=== PATIENT | female | born 1935 | race Caucasian/White ===

== ENCOUNTER 2021-05-05 17:41 | Inpatient (IN) | payer MEDICAID, OTHER, SELFPAY ==
--- NOTE | 2021-05-05 | ECG_ITS ---
Test Reason : CHEST PAIN Blood Pressure : / mmHG Vent. Rate : 076 BPM Atrial Rate : 076 BPM P-R Int : 000 ms QRS Dur : 074 ms QT Int : 348 ms P-R-T Axes : 000 066 087 degrees QTc Int : 391 ms Normal sinus rhythm Minimal voltage criteria for LVH, may be normal variant Nonspecific ST abnormality Abnormal ECG No previous ECGs available Referred By: Generic ED Physician Electronically Signed By:SONALI DILLON
--- NOTE | ~2021-05-05 | CT_ITS ---
PROCEDURE: CT GUIDED ASPIRATION, FINE NEEDLE, WITH IMAGE GUIDANCE CLINICAL INFORMATION: Cavitary left lower lobe lung mass. COMPARISON: Previous chest x-ray and chest CT April 2021 TECHNIQUE: Procedure and risks and benefits including bleeding, infection and pneumothorax were discussed with the patient through an recordings librarian, and informed consent was obtained. Patient was positioned in the left decubitus position. The left back was prepped and draped in the usual sterile fashion. The skin and soft tissues were anesthetized with 1% lidocaine plain. CT guidance and a coaxial system, access to the periphery of the cavitary left lower lobe mass was obtained. A 20-gauge core biopsy was attempted, however, specimen appeared inadequate. Two 22-gauge FNA specimens through the coaxial needle were obtained for cytology and microbiology studies. Subsequently, using a larger coaxial needle, access to the peripheral component of the cavitary left lower lobe lesion was obtained. Four 18-gauge core biopsies were obtained. Two were placed in formalin for pathology and 2 were submitted for microbiology studies. The patient received Versed 2 mg and fentanyl 50 mcg intravenously during the procedure. Conscious sedation was provided by a registered nurse under my direct supervision. Total sedation time was 28 minutes. Patient dose: 112 mGy-cm. This CT examination was performed using dose optimization techniques as appropriate, variously including the following: *Automated exposure control *Adjustment of mA and/or kV according to patient size (this includes techniques or standardized protocols for targeted exams where dose is matched to indication/reason for exam; i.e. extremities or head) *Use of iterative reconstruction technique DLP: 112 mGy-cm FINDINGS: There is a cavitary lesion in the left lower lobe extending to the chest wall that was targeted for biopsy and fine-needle aspiration. Postprocedure images demonstrate no pneumothorax. CT/CT guided aspiration IMPRESSION: CT-guided biopsy and fine-needle aspiration of the cavitary left lower lobe lesion.
--- NOTE | ~2021-05-05 | XR_ITS ---
EXAMINATION: PORTABLE CHEST 1 VIEW CLINICAL INFORMATION: post lung biopsy . COMPARISON: CT guided biopsy earlier today and the 05/05/2021 CT scan and chest x-ray. TECHNIQUE: Portable frontal view of the chest was obtained. FINDINGS: Posterior opacity in the left hemithorax is again seen similar to the 05/05/2021 examination. I do not appreciate any new focal infiltrate, edema, or significant pneumothorax. Cardiac and mediastinal silhouettes within normal limits for size. XR/XR chest 1V IMPRESSION: Previously demonstrated cavitary masslike opacity overlying the left midlung was recently biopsied today. I do not appreciate any pneumothorax or focal airspace disease otherwise.
--- NOTE | ~2021-05-05 | XR_ITS ---
EXAMINATION: XR CHEST CLINICAL INFORMATION: Chest pain COMPARISON: None TECHNIQUE: Frontal view of the chest was obtained. FINDINGS: There is a 7.4 x 9.1 cm mass projecting over the left mid chest. There appears to be central lucency suggesting there may be cavitation. Normal heart size. No pleural effusion or pneumothorax. Degenerative changes of the shoulders and spine. XR/XR chest 1V IMPRESSION: 7.4 x 9.1 cm mass in the left mid chest with central lucency which may be cavitation. This could be a cavitary malignancy or infection (abscess). Recommend contrast-enhanced chest CT for further evaluation. The findings and recommendations were discussed with Joseph HENSON by telephone at 05/05/2021 8:45 PM and it was ascertained that the content and urgency of the report was understood at the time of direct communication.
--- NOTE | ~2021-05-05 | CT_ITS ---
EXAMINATION: CT CHEST WITH CONTRAST CT ABDOMEN AND PELVIS WITH CONTRAST CLINICAL INFORMATION: Chest mass. Cough. Nausea, abdominal distention and discomfort. COMPARISON: Radiograph from today TECHNIQUE: Multidetector volumetric imaging was performed through the chest, abdomen and pelvis following the administration of 85 mL of Omnipaque 350 intravenous contrast. Sagittal and coronal reformatted images were obtained on the technologist's workstation. Axial MIP volume rendering provided. This CT examination was performed using dose optimization techniques as appropriate, variously including the following: *Automated exposure control *Adjustment of mA and/or kV according to patient size (this includes techniques or standardized protocols for targeted exams where dose is matched to indication/reason for exam; i.e. extremities or head) *Use of iterative reconstruction technique DLP: 720 mGy-cm. FINDINGS: CHEST: Lungs: The central airways are patent. There is a cavitating lesion involving a large section of the left lower lobe, including the superior segment. This is seen along the posterior pleura with extension into the adjacent chest wall. Associated rib erosion involving the seventh and eighth ribs. This mass overall measures 7.1 x 8.6 x 7 There is mild centrilobular emphysema. No solid pulmonary nodules are seen. Calcified granuloma at the left base. No pneumothorax or pleural effusion. Mediastinum: The heart is of normal size. No pericardial effusion. The central vasculature is unremarkable. Enlarged AP window lymph node measuring 1.2 cm on series 5 image 23. Heterogeneous thyroid gland with calcifications and small nodules. Chest Wall/Axilla: No lymphadenopathy. No chest wall mass. ABDOMEN/PELVIS: Liver, Gallbladder, Biliary Tree: The liver is normal in size, shape, and attenuation. No focal hepatic lesion or biliary ductal dilatation is present. Calcification in the right lobe of the liver. The gallbladder is unremarkable with no evidence of radiopaque gallstones, gallbladder wall thickening, or pericholecystic inflammatory changes. Pancreas: Unremarkable. Spleen: Normal size. 0.7 cm hypoattenuating lesion at the superior aspect of the spleen measuring higher than simple fluid. Adrenal Glands: 0.8 cm left adrenal gland nodule. The right adrenal gland is unremarkable. Kidneys and Ureters: The kidneys are normal in size, shape, and attenuation. No hydronephrosis, hydroureter or calculi seen. No perinephric stranding. Simple renal cysts bilaterally. No follow-up imaging recommended. Bladder: Unremarkable. Gastrointestinal Tract: The stomach and small bowel appear unremarkable. No dilated loops of bowel or evidence of obstruction. No diverticulosis. No colonic wall thickening or adjacent inflammatory changes. No free air or free fluid. The appendix is unremarkable. Abdominal Wall: No hernia is demonstrated. Lymphovascular Structures: Lymph nodes: Normal. Vascular: Normal caliber aorta with mild atherosclerotic calcification. Pelvic Viscera: The uterus and adnexa are unremarkable. OSSEOUS STRUCTURES: As mentioned above, there is erosion into the left posterior seventh and eighth ribs. Pathologic fracture is nondisplaced of the posterior left eighth rib. There are no remote osseous lesions. Degenerative changes noted in the spine. CT/CT abdomen pelvis w con IMPRESSION: Cavitating mass of the left lower lobe. This is highly suspicious for neoplasm given the extension into the adjacent soft tissues and associated erosion of the adjacent ribs. Pathologic fracture of the posterior left eighth rib at the site of erosion. Enlarged AP window lymph node, concerning for metastatic disease. Nonspecific 0.8 cm left adrenal gland nodule. This could be further evaluated with adrenal protocol CT.
--- NOTE | ~2021-05-05 | CT_ITS ---
PROCEDURE: CT GUIDED ASPIRATION, FINE NEEDLE, WITH IMAGE GUIDANCE CLINICAL INFORMATION: Cavitary left lower lobe lung mass. COMPARISON: Previous chest x-ray and chest CT April 2021 TECHNIQUE: Procedure and risks and benefits including bleeding, infection and pneumothorax were discussed with the patient through an manager community development, and informed consent was obtained. Patient was positioned in the left decubitus position. The left back was prepped and draped in the usual sterile fashion. The skin and soft tissues were anesthetized with 1% lidocaine plain. CT guidance and a coaxial system, access to the periphery of the cavitary left lower lobe mass was obtained. A 20-gauge core biopsy was attempted, however, specimen appeared inadequate. Two 22-gauge FNA specimens through the coaxial needle were obtained for cytology and microbiology studies. Subsequently, using a larger coaxial needle, access to the peripheral component of the cavitary left lower lobe lesion was obtained. Four 18-gauge core biopsies were obtained. Two were placed in formalin for pathology and 2 were submitted for microbiology studies. The patient received Versed 2 mg and fentanyl 50 mcg intravenously during the procedure. Conscious sedation was provided by a registered nurse under my direct supervision. Total sedation time was 28 minutes. Patient dose: 112 mGy-cm. This CT examination was performed using dose optimization techniques as appropriate, variously including the following: *Automated exposure control *Adjustment of mA and/or kV according to patient size (this includes techniques or standardized protocols for targeted exams where dose is matched to indication/reason for exam; i.e. extremities or head) *Use of iterative reconstruction technique DLP: 112 mGy-cm FINDINGS: There is a cavitary lesion in the left lower lobe extending to the chest wall that was targeted for biopsy and fine-needle aspiration. Postprocedure images demonstrate no pneumothorax. CT/CT guided FNA add lesion IMPRESSION: CT-guided biopsy and fine-needle aspiration of the cavitary left lower lobe lesion.
[2021-05-05 18:17] VITALS: BP 181/60; PULSE 81; RESP 17; O2SAT 96; BMI 24.7
--- NOTE | 2021-05-05 19:52 | ECG_ITS ---
Test Reason : CHEST PAIN Blood Pressure : / mmHG Vent. Rate : 076 BPM Atrial Rate : 076 BPM P-R Int : 114 ms QRS Dur : 074 ms QT Int : 356 ms P-R-T Axes : 090 064 082 degrees QTc Int : 400 ms Normal sinus rhythm Minimal voltage criteria for LVH, may be normal variant Nonspecific ST abnormality Abnormal ECG When compared with ECG of 05-MAY-2021 18:55, No significant change was found Referred By: Generic ED Physician Electronically Signed By:SONALI DILLON
[2021-05-05 21:21] LABS: MANUAL DIFF FLAG NO
[2021-05-05 21:23] LABS: Basophils Absolute Auto 0.1 X10*3/uL (0.0-0.2); Basophils Percent Auto 0.3 % (0-2); Eosinophils Absolute Auto 0.1 X10*3/uL (0.0-0.4); Eosinophils Percent Auto 0.6 % (0-4); Hematocrit 30.5 % (37-47); Hemoglobin 10.2 g/dl (12.0-16.0); Imm Gran Abs Auto 0.07 X10*3/uL (0.00-0.03); Imm Gran Pct Auto 0.5 % (0.0-0.4); Lymphocytes Absolute Auto 3.4 X10*3/uL (1.2-4.9); Lymphocytes Percent Auto 22.8 % (20-40); Mean Corpuscular HGB Conc 33.4 g/dl (31.0-35.0); Mean Corpuscular Hemoglobin 28.5 pg (27.0-33.0); Mean Corpuscular Volume 85.2 fL (80-98); Monocytes Percent Auto 6.5 % (2-11); Neutrophils Absolute Auto 10.4 X10*3/uL (2.0-8.3); Neutrophils Percent Auto 69.3 % (45-73); Platelet Count 566 X10*3/uL (160-400); Red Blood Count 3.58 X10*6/uL (4.20-5.50); Red Cell Distribution Width 13.8 % (11.0-16.0)
[2021-05-05 21:28] LABS: INTERNATIONAL NORM RATIO 1.1 (0.9-1.1)
--- NOTE | 2021-05-05 21:30 | PC.NURSE ---
family reports pt is from [facility]. pt has been experiencing chest discomfort for months, increased yesterday, pt denies dyspnea. pt reports chest discomfort radiates down left arm.
[2021-05-05 21:31] LABS: Partial Thromboplastin Time 33.1 SEC (24.1-38.0)
[2021-05-05 21:41] LABS: Anion Gap 15 (12-20); Blood Urea Nitrogen 11 mg/dL (9-16); Calcium 10.5 mg/dL (8.4-10.2); Carbon Dioxide 27 mmol/L (22-29); Chloride 94 mmol/L (96-108); Creatinine Clr Calc Pharmacy 46.6; Estimated Glomerular Filt Rate > 60; Glucose Random 191 mg/dL (60-115); Potassium 4.2 mmol/L (3.3-5.1); Sodium 132 mmol/L (135-145)
[2021-05-05 21:45] LABS: Troponin-I High Sensitivity 5.8 ng/L (<3.5-17.0)
--- NOTE | 2021-05-05 22:44 | ED.CHESTPAIN ---
HPI - Chest Pain General Chief Complaint: Chest Pain Stated Complaint: l arm back and ear pain Time Seen by Provider: 05/05/21 22:40 Source: patient and family Mode of arrival: ambulatory History of Present Illness HPI narrative: 85F with hx of DM, HTN, who has been having abdominal distension and nausea with intermittent vomiting for over 2 weeks. Her family states that she was brought over from [facility] approximately 2 weeks ago and was suffering from these symptoms at that time. Patient denies any fever or chills but states she has had a cough as well as urinary pain/burning. She states she has not had a bowel movement in 4 days and has had decreased ability to pass flatus. She complaints of abdominal discomfort and distention. Family states that patient has history of abdominal surgery with removal of a mass not associated with her uterus. They states that this occurred 18 years ago. Related Data Home Medications Medication Instructions Recorded Confirmed tramadol 37.5 mg-acetaminophen 325 1 tab PO BID PRN 05/05/21 05/05/21 mg tablet Allergies Allergy/AdvReac Type Severity Reaction Status Date / Time No Known Allergies Allergy Verified 05/05/21 18:17 Review of Systems Review of Systems: Pertinent positives and negatives as stated in HPI 10 point review of systems otherwise negative. PMFSH Past Medical History Source: nursing notes reviewed Medical History Diabetes Social History Social History Advance Directives: No Advance Directives Information Provided: Yes Physical Exam Vital Signs: Vital Signs: Last Vital Signs Pulse 77 05/05/21 23:48 Resp 23 H 05/05/21 23:48 BP 165/58 H 05/05/21 23:48 Pulse Ox 96 05/05/21 18:17 Body Mass Index 24.7 VITAL SIGNS: Reviewed. GENERAL: Well developed, well nourished, in no acute distress. HEAD: Normocephalic/atraumatic EYES: PERRLA, EOMI EARS: Ext canals without abnormality, TMs non-bulging and non-erythematous NOSE: Nares patent bilateral OROPHARYNX: no oral lesions noted, posterior pharynx clear NECK: Supple, no adenopathy LUNGS: Decreased breath sounds on the left without wheeze/rhonchi/rales. SpO2<96> CARDIOVASCULAR: Regular rate and rhythm without noted murmurs, no JVD or lower extremity edema. ABDOMEN: Soft, mild tenderness diffusely without rebound, distension, with surgical scarring consistent with surgical history. MUSCULOSKELETAL: No tenderness, deformities, or effusions noted on gross inspection. EXTREMITIES: No cyanosis, clubbing or edema. SKIN: Inspection of the skin reveals no rashes, ulcerations, jaundice, pallor, or petechiae. NEUROLOGIC: Alert and oriented x 4. Strength and sensation to light touch were grossly intact x 4 Course Course Course Narrative: 85-year-old female with history and clinical presentation concerning for possible obstruction or intra-abdominal infection but unknown as patient recently arrived from [facility]. On review of all investigations patient has a large mass within left lower lobe with features suspicious for neoplasm. There is no evidence of SBO and patient's lab work suggestive of possible underlying infection (TIME: 0115) verses inflammatory response and patient was empirically treated with antibiotics and obtained a lactic acid and blood cultures. I discussed this case with inpatient hospitalist who accepts admission. MDM - Chest Pain Lab Data Result diagrams: 05/05/21 21:10 05/05/21 21:10 Labs: Lab Results 05/05/21 05/05/21 05/05/21 Range/Units 21:10 21:10 21:10 WBC 15.0 H (4.8-10.8) X10*3/uL RBC 3.58 L (4.20-5.50) X10*6/uL Hgb 10.2 L (12.0-16.0) g/dl Hct 30.5 L (37-47) % MCV 85.2 (80-98) fL MCH 28.5 (27.0-33.0) pg MCHC 33.4 (31.0-35.0) g/dl RDW 13.8 (11.0-16.0) % Plt Count 566 H (160-400) X10*3/uL MPV 9.0 L (9.4-12.3) fL Immature Gran % (Auto) 0.5 H (0.0-0.4) % Neut % (Auto) 69.3 (45-73) % Lymph % (Auto) 22.8 (20-40) % [place] % (Auto) 6.5 (2-11) % Eos % (Auto) 0.6 (0-4) % Baso % (Auto) 0.3 (0-2) % Lymph # (Auto) 3.4 (1.2-4.9) X10*3/uL [place] # (Auto) 1.0 (0.1-1.2) X10*3/uL Eos # (Auto) 0.1 (0.0-0.4) X10*3/uL Baso # (Auto) 0.1 (0.0-0.2) X10*3/uL Abs Immat Gran (auto) 0.07 H (0.00-0.03) X10*3/uL Absolute Neuts (auto) 10.4 H (2.0-8.3) X10*3/uL Absolute Nucleated RBC 0.000 (0.0-0.012) X10*3/uL Nucleated RBC % (auto) 0.0 (0.0-0.2) /100WBC PT (9.9-13.0) SEC INR (0.9-1.1) APTT (24.1-38.0) SEC Sodium 132 L (135-145) mmol/L Potassium 4.2 (3.3-5.1) mmol/L Chloride 94 L (96-108) mmol/L Carbon Dioxide 27 (22-29) mmol/L Anion Gap 15 (12-20) BUN 11 (9-16) mg/dL Creatinine 0.76 (0.5-1.4) mg/dL Estim Creat Clear Calc 46.6 Estimated GFR > 60 Random Glucose 191 H (60-115) mg/dL Calcium 10.5 H (8.4-10.2) mg/dL Troponin I High Sens 5.8 (<3.5-17.0) ng/L COVID-19 ([facility]) (Negative) COVID-19 Clin Com 05/05/21 05/05/21 Range/Units 21:11 23:30 WBC (4.8-10.8) X10*3/uL RBC (4.20-5.50) X10*6/uL Hgb (12.0-16.0) g/dl Hct (37-47) % MCV (80-98) fL MCH (27.0-33.0) pg MCHC (31.0-35.0) g/dl RDW (11.0-16.0) % Plt Count (160-400) X10*3/uL MPV (9.4-12.3) fL Immature Gran % (Auto) (0.0-0.4) % Neut % (Auto) (45-73) % Lymph % (Auto) (20-40) % [place] % (Auto) (2-11) % Eos % (Auto) (0-4) % Baso % (Auto) (0-2) % Lymph # (Auto) (1.2-4.9) X10*3/uL [place] # (Auto) (0.1-1.2) X10*3/uL Eos # (Auto) (0.0-0.4) X10*3/uL Baso # (Auto) (0.0-0.2) X10*3/uL Abs Immat Gran (auto) (0.00-0.03) X10*3/uL Absolute Neuts (auto) (2.0-8.3) X10*3/uL Absolute Nucleated RBC (0.0-0.012) X10*3/uL Nucleated RBC % (auto) (0.0-0.2) /100WBC PT 13.0 (9.9-13.0) SEC INR 1.1 (0.9-1.1) APTT 33.1 (24.1-38.0) SEC Sodium (135-145) mmol/L Potassium (3.3-5.1) mmol/L Chloride (96-108) mmol/L Carbon Dioxide (22-29) mmol/L Anion Gap (12-20) BUN (9-16) mg/dL Creatinine (0.5-1.4) mg/dL Estim Creat Clear Calc Estimated GFR Random Glucose (60-115) mg/dL Calcium (8.4-10.2) mg/dL Troponin I High Sens (<3.5-17.0) ng/L COVID-19 ([facility]) Negative (Negative) COVID-19 Clin Com See Note ECG Data ECG #1: Attestation: I personally reviewed and interpreted this ECG as follows: Prior ECG tracings: not available for review Interpretation: Normal sinus rhythm, HR -76, no STEMI, NJ/QRS/QTC are within normal limits. Discharge Plan Discharge Clinical Impression: Atypical chest pain, Intractable vomiting with nausea Patient Disposition: Admitted As Inpatient Prescriptions: No Action tramadol-acetaminophen 37.5-325 mg Tablet 1 tab PO BID PRN (Reason: Pain) RF: 0
[2021-05-05] MEDS: iohexoL 350 MG/ML 100 ML INFUS..BTL 85 ML IV (23:34)
[2021-05-05 23:48] VITALS: BP 165/58; PULSE 77; RESP 23
[2021-05-05 23:53] LABS: COVID-19 Test Negative (Negative)
[2021-05-06] VITALS (7 sets, daily range): BP systolic 134–167; BP diastolic 54–68; PULSE 65–82; RESP 16–20; TEMP 36–37.1; O2SAT 96–98
[2021-05-06] MEDS: 0.9 % Sodium Chloride 1,000 ML 999 ML IV (02:05)
[2021-05-06] MEDS: cefEPime HCl 1 GM in 0.9 % Sodium Chloride 50 ML IV (02:05)
[2021-05-06 02:14] LABS: Lactic Acid 1.2 mmol/L (0.5-2.0)
--- NOTE | 2021-05-06 02:39 | P.HPHOSP_ITS ---
History of Present Illness Date of Service: 05/06/21 Chief Complaint: Abdominal pain 85-year-old female with a past medical history of diabetes, chronic abdominal pain, history of abdominal surgery recently came from [facility] to .. presented to the hospital today with a chief complaint of abdominal pain. Patient reports that she has chronic abdominal pain but for the past couple days she has been having increased abdominal pain/chest discomfort; denies any falls. Complains of nausea and vomiting happened today. Denies any palpitations, lightheadedness or dizziness. Denies any diarrhea; complains of constipation. Mention she has decreased appetite; Denies any night sweats. Review of all other systems is negative except mentioned above ER course: Per ER team patient had CT abdomen pelvis done which showed no evidence of intra-abdominal obstruction; on this CT chest noted to have left lung cavitary lesion concern for malignancy. Admitted for further management. EKG nonischemic. Troponin negative. [facility] Medical History Diabetes Pertinent family history: Mother had abdominal issues Social History Advance Directives: No Advance Directives Information Provided: Yes Meds Allergies Allergy/AdvReac Type Severity Reaction Status Date / Time No Known Allergies Allergy Verified 05/05/21 18:17 Active Medications: Current Medications Acetaminophen (Acetaminophen 325 Mg Tablet) 650 mg PO Q6H PRN PRN Reason: Pain, Mild (Pain Scale 1-3) Dextrose (Dextrose 50 % 25 Gm/50 Ml Vial) 25 gm IVPUSH Q15M PRN; Protocol PRN Reason: per Hypoglycemia Standing Ord. Enoxaparin Sodium (Enoxaparin Sodium 40 Mg/0.4 Ml Syringe) 40 mg SUBCUT Q24H TOYIN Glucose (Glucose Gel 15 Gm Gel..Gram.) 15 gm PO Q15M PRN; Protocol PRN Reason: per Hypoglycemia Standing Ord. Insulin Human Lispro (Insulin Lispro 100 Unit/Ml 3 Ml Vial) 0 unit SUBCUT QIDACHS TOYIN; Protocol Melatonin (Melatonin 3 Mg Tablet) 6 mg PO BEDTIME PRN PRN Reason: Insomnia Senna (Sennosides 8.6 Mg Tablet) 17.2 mg PO BEDTIME PRN PRN Reason: Constipation Sodium Chloride (0.9 % Sodium Chloride Flush 3 Ml Syringe) 3 ml IVFLUSH QSHIFT [facility] Home Medications Medication Instructions Recorded Confirmed Last Taken Type tramadol 37.5 mg-acetaminophen 325 1 tab PO BID PRN 05/05/21 05/05/21 Unknown History mg tablet Physical Exam Vital Signs and Narrative: Vital Signs: Last Vital Signs Pulse 71 05/06/21 02:01 Resp 16 05/06/21 02:01 BP 155/55 H 05/06/21 02:01 Pulse Ox 96 05/05/21 18:17 Body Mass Index 24.7 Gen: Appears be in no acute distress HEENT: NCAT, Moist mucosa. Pulmonary: Vesicular breath sounds, fair air entry CVS: Normal S1-S2 Abdomen: BS+, Soft, Nontender Extremities: Warm well perfused Neuro: Alert and awake. Results Labs CBC and Chem 7: 05/05/21 21:10 05/05/21 21:10 Labs: Laboratory Results - last 24 hr 05/05/21 05/05/21 05/05/21 21:10 21:10 21:10 MCV 85.2 MCH 28.5 MCHC 33.4 RDW 13.8 Plt Count 566 H MPV 9.0 L Immature Gran % (Auto) 0.5 H Neut % (Auto) 69.3 Lymph % (Auto) 22.8 [place] % (Auto) 6.5 Eos % (Auto) 0.6 Baso % (Auto) 0.3 Lymph # (Auto) 3.4 [place] # (Auto) 1.0 Eos # (Auto) 0.1 Baso # (Auto) 0.1 Abs Immat Gran (auto) 0.07 H Absolute Neuts (auto) 10.4 H Absolute Nucleated RBC 0.000 Nucleated RBC % (auto) 0.0 PT INR APTT Anion Gap 15 Estim Creat Clear Calc 46.6 Estimated GFR > 60 Random Glucose 191 H Lactic Acid Calcium 10.5 H Troponin I High Sens 5.8 COVID-19 ([facility]) COVID-19 Clin Com 05/05/21 05/05/21 05/06/21 21:11 23:30 01:55 MCV MCH MCHC RDW Plt Count MPV Immature Gran % (Auto) Neut % (Auto) Lymph % (Auto) [place] % (Auto) Eos % (Auto) Baso % (Auto) Lymph # (Auto) [place] # (Auto) Eos # (Auto) Baso # (Auto) Abs Immat Gran (auto) Absolute Neuts (auto) Absolute Nucleated RBC Nucleated RBC % (auto) PT 13.0 INR 1.1 APTT 33.1 Anion Gap Estim Creat Clear Calc Estimated GFR Random Glucose Lactic Acid 1.2 Calcium Troponin I High Sens COVID-19 ([facility]) Negative COVID-19 Clin Com See Note Imaging Radiologist's Impressions: Impressions Chest X-Ray 05/05/21 19:52 IMPRESSION: 7.4 x 9.1 cm mass in the left mid chest with central lucency which may be cavitation. This could be a cavitary malignancy or infection (abscess). Recommend contrast-enhanced chest CT for further evaluation. The findings and recommendations were discussed with Joseph HENSON by telephone at 05/05/2021 8:45 PM and it was ascertained that the content and urgency of the report was understood at the time of direct communication. Abdomen/Pelvis CT 05/05/21 22:40 IMPRESSION: Cavitating mass of the left lower lobe. This is highly suspicious for neoplasm given the extension into the adjacent soft tissues and associated erosion of the adjacent ribs. Pathologic fracture of the posterior left eighth rib at the site of erosion. Enlarged AP window lymph node, concerning for metastatic disease. Nonspecific 0.8 cm left adrenal gland nodule. This could be further evaluated with adrenal protocol CT. Chest CT 05/05/21 22:40 IMPRESSION: Cavitating mass of the left lower lobe. This is highly suspicious for neoplasm given the extension into the adjacent soft tissues and associated erosion of the adjacent ribs. Pathologic fracture of the posterior left eighth rib at the site of erosion. Enlarged AP window lymph node, concerning for metastatic disease. Nonspecific 0.8 cm left adrenal gland nodule. This could be further evaluated with adrenal protocol CT. Assessment and Plan (1) Atypical chest pain: Status: Acute (2) Lung mass: Status: Acute 85-year-old female with a past medical history of diabetes, chronic abdominal pain, history of abdominal surgery recently came from [facility] to .. presented to the hospital today with a chief complaint of abdominal pain. Nausea/vomiting/abdominal discomfort: CT abdomen showed no acute findings. Supportive care. Chest discomfort: Likely secondary to posterior rib fracture. Pain control. Supportive care. troponin: 5.8; repeat pending DDimer Left lung cavitary lesion: Concern for malignancy. Will consult pulmonology and Oncology for further recommendations. Diabetes: Insulin sliding scale. Patient generic medicine at home which has metformin. DVT prophylaxis: Lovenox Code status: Full code Quality Stroke Does the patient have a stroke diagnosis?: No VTE Prior VTE?: No VTE Risk Level:: Medical - moderate - high VTE Device Contraindication: Treatment Not Indicated VTE Drug Contraindication: N/A - Med Ordered
[2021-05-06 03:08] LABS: MANUAL DIFF FLAG NO
[2021-05-06 03:26] LABS: Basophils Absolute Auto 0.1 X10*3/uL (0.0-0.2); Basophils Percent Auto 0.4 % (0-2); Eosinophils Absolute Auto 0.1 X10*3/uL (0.0-0.4); Eosinophils Percent Auto 0.5 % (0-4); Hematocrit 27.6 % (37-47); Hemoglobin 9.1 g/dl (12.0-16.0); Imm Gran Abs Auto 0.06 X10*3/uL (0.00-0.03); Imm Gran Pct Auto 0.4 % (0.0-0.4); Lymphocytes Absolute Auto 3.7 X10*3/uL (1.2-4.9); Lymphocytes Percent Auto 26.7 % (20-40); Mean Corpuscular Hemoglobin 28.4 pg (27.0-33.0); Mean Corpuscular Volume 86.3 fL (80-98); Mean Platelet Volume 9.1 fL (9.4-12.3); Monocytes Absolute Auto 1.1 X10*3/uL (0.1-1.2); Monocytes Percent Auto 7.7 % (2-11); Neutrophils Absolute Auto 8.8 X10*3/uL (2.0-8.3); Neutrophils Percent Auto 64.3 % (45-73); Platelet Count 518 X10*3/uL (160-400); Red Cell Distribution Width 13.8 % (11.0-16.0); White Blood Count 13.7 X10*3/uL (4.8-10.8)
[2021-05-06 03:35] LABS: D Dimer 577 NG/ML
[2021-05-06 03:42] LABS: Anion Gap 13 (12-20); Blood Urea Nitrogen 10 mg/dL (9-16); Calcium 9.8 mg/dL (8.4-10.2); Carbon Dioxide 26 mmol/L (22-29); Chloride 98 mmol/L (96-108); Estimated Glomerular Filt Rate > 60; Glucose Random 150 mg/dL (60-115); Potassium 3.7 mmol/L (3.3-5.1); Sodium 133 mmol/L (135-145)
[2021-05-06 03:43] LABS: Troponin-I High Sensitivity 6.1 ng/L (<3.5-17.0)
[2021-05-06 07:24] LABS: Glucose, Whole Blood 128 mg/dL (60-115)
[2021-05-06] MEDS: 0.9 % Sodium Chloride Flush 3 ML SYRINGE IVFLUSH ×3 (08:09→21:00)
--- NOTE | 2021-05-06 08:10 | PC.NURSE ---
pt alert, pt's mentation at baseline per daughter at bedside. She denies dizziness, nausea, diarrhea, sob, chest pain, no active vomiting noted. She reports LLQ pain. Will follow-up with hospitalist regarding pt's pain. POC 128-no insulin coverage needed per [facility] protocol. Pt up to restroom with daughter. Pt resting quietly, no apparent distress noted. Pt awaiting bed assignment. will continue to monitor.
--- NOTE | 2021-05-06 08:38 | PM.HEMONCCN ---
Subjective - Subjective Chief complaint: Consult for: Lung mass. Patient: new to practice Consult date: 05/06/21 Requesting Physician: Alejandra. Primary Care Provider: None Physician Medical Summary: DIAGNOSIS: Lung mass. HPI - Consult Narrative Reason for consult: Consult for: Lung mass. Narrative: Sahra Gonzalez is a pleasant 85 year old lady, presented to the hospital, with a chief complaint of abdominal pain. Patient reports that she has chronic abdominal pain, but for the past couple days, she has been having increased abdominal pain/chest discomfort; Complains of nausea and vomiting happened today. Denies any diarrhea; complains of constipation. Mention she has decreased appetite; Denies any palpitations, No lightheadedness or dizziness. Denies any fever chills nor night sweats. CT abdomen pelvis: Showed no evidence of intra-abdominal obstruction; However, on this CT chest she was noted to have left lung cavitary lesion concern for malignancy. EKG nonischemic. Troponin negative. Past medical history of: 1. Diabetes, 2. Chronic abdominal pain, 3. History of abdominal surgery 4. Recently came from [facility] to [facility]. Review of Systems - Constitutional Reports system reviewed and no additional complaints, except as documented, Reports fatigue, Reports lack of energy, Reports poor appetite, Reports weakness, Reports weight loss, Denies fever(s), Denies night sweats - Eyes Reports system reviewed and no additional complaints, except as documented - ENT Reports system reviewed and no additional complaints, except as documented - Cardiovascular Reports system reviewed and no additional complaints, except as documented - Respiratory Reports no additional respiratory complaints - Gastrointestinal Reports system reviewed and no additional complaints, except as documented, Reports abdominal pain, Reports nausea, Reports vomiting, Denies diarrhea - Genitourinary Reports no additional female genitourinary complaints - Musculoskeletal Reports system reviewed and no additional complaints, except as documented - Integumentary/Breasts Skin/Breast: Reports no additional skin complaints - Neurologic Reports system reviewed and no additional complaints, except as documented - Psychiatric Reports system reviewed and no additional complaints, except as documented - Endocrine Reports no additional endocrine complaints - Hematologic/Lymphatic Reports system reviewed and no additional complaints, except as documented - Allergic/Immunologic Reports system reviewed and no additional complaints, except as documented Oncology Screenings - ECOG Performance Status ECOG Performance Status: 2 [facility] Medical History: Medical History (Last Reviewed 05/05/21 @ 23:19 by Racquel Lima MD) Diabetes Functional capacity: uses cane/walker Patient : No Social History: Social History (Last Reviewed 05/05/21 @ 23:19 by Racquel Lima MD) Living Situation History: Household Members: Spouse Household Members: Family Housing: House Alcohol History Details: Alcohol intake frequency: does not drink Tobacco History: Patient Tobacco Use Status: Never used Tobacco Occupation Assessmet: service: No Home Medications and Allergies Current Medications: Current Medications Acetaminophen (Acetaminophen 325 Mg Tablet) 650 mg PO Q6H PRN PRN Reason: Pain, Mild (Pain Scale 1-3) Dextrose (Dextrose 50 % 25 Gm/50 Ml Vial) 25 gm IVPUSH Q15M PRN; Protocol PRN Reason: per Hypoglycemia Standing Ord. Enoxaparin Sodium (Enoxaparin Sodium 40 Mg/0.4 Ml Syringe) 40 mg SUBCUT Q24H TOYIN Glucose (Glucose Gel 15 Gm Gel..Gram.) 15 gm PO Q15M PRN; Protocol PRN Reason: per Hypoglycemia Standing Ord. Ampicillin Sodium/Sulbactam (Sodium 3 gm/ Sodium Chloride) 100 mls @ 200 mls/hr IV Q8H TOYIN Insulin Human Lispro (Insulin Lispro 100 Unit/Ml 3 Ml Vial) 0 unit SUBCUT QIDACHS [facility]; Protocol Last Admin: 05/06/21 07:56 Dose: Not Given Documented by: Melatonin (Melatonin 3 Mg Tablet) 6 mg PO BEDTIME PRN PRN Reason: Insomnia Senna (Sennosides 8.6 Mg Tablet) 17.2 mg PO BEDTIME PRN PRN Reason: Constipation Sodium Chloride (0.9 % Sodium Chloride Flush 3 Ml Syringe) 3 ml IVFLUSH QSHIFT [facility] Last Admin: 05/06/21 08:09 Dose: 3 ml Documented by: Home Medications Medication Instructions Recorded Confirmed Type tramadol 37.5 mg-acetaminophen 325 1 tab PO BID PRN 05/05/21 05/05/21 History mg tablet Allergies Allergy/AdvReac Type Severity Reaction Status Date / Time No Known Allergies Allergy Verified 05/05/21 18:17 Physical Exam Vital signs: Vital Signs Temp 98.4 F 05/06/21 08:07 Pulse 70 05/06/21 08:07 Resp 20 05/06/21 08:07 BP 167/62 H 05/06/21 08:07 Pulse Ox 97 05/06/21 08:07 Intake & Output 05/05/21 05/06/21 05/06/21 18:59 06:59 18:59 Intake Total 1050 / 1050 Balance 1050 / 1050 Intake: Intake, IV Amount 1050 / 1050 0.9 % Sodium Chloride 1,000 ml 1000 / 1000 @ 999 mls/hr IV .Q1H1M STA Rx#: [id number] cefEPime HCl 1 gm In 0.9 % 50 / 50 Sodium Chloride 50 ml @ 100 mls /hr IV ONCE ONE Rx#:[id number] Other: Weight 59.9 kg Weight 59.9 kg - Routine HEENT Exam Head: Present: normal inspection Eye: Present: normal appearance ENT: Present: mucous membranes moist - Routine Neck Exam Present: supple. Absent: thyromegaly - Routine Respiratory Exam Present: decreased breath sounds - Routine Cardiovascular Exam Cardiovascular: Present: RRR, S1, S2 - Routine Abdominal Exam Present: hypoactive bowel sounds, tenderness Hem/Onc Consult Result - Labs CBC & Chem 7: 05/10/21 05:59 05/10/21 05:59 Labs: Short CBC 05/05/21 05/06/21 Range/Units 21:10 03:03 WBC 15.0 H 13.7 H (4.8-10.8) X10*3/uL Hgb 10.2 L 9.1 L (12.0-16.0) g/dl Hct 30.5 L 27.6 L (37-47) % Plt Count 566 H 518 H (160-400) X10*3/uL BMP 05/05/21 05/06/21 21:10 03:03 Sodium 132 L 133 L Potassium 4.2 3.7 Chloride 94 L 98 Carbon Dioxide 27 26 BUN 11 10 Creatinine 0.76 0.68 Calcium 10.5 H 9.8 D Assessment and Plan Patient Active problem list reviewed?: Yes (1) Cavitary lesion of lung Status: Acute Assessment and plan: This is a pleasant 85-year-old lady who presented with acute on chronic abdominal pain. CT abdomen/ pelvis: Showed no evidence of intra-abdominal obstruction; However, on this CT chest she was noted to have left lung cavitary lesion concern for malignancy. A dedicated CT scan of the chest was done which revealed: Cavitating mass of the left lower lobe. This is highly suspicious for neoplasm given the extension into the adjacent soft tissues and associated erosion of the adjacent ribs. Pathologic fracture of the posterior left eighth rib at the site of erosion. Enlarged AP window lymph node, concerning for metastatic disease. Nonspecific 0.8 cm left adrenal gland nodule. This could be further evaluated with adrenal protocol CT. PLAN: Reviewed images with IR. It is an 8 cm mass, rather huge. Will need to obtain tissue. Choices include: 1. CT-guided biopsy: Rib versus lung mass. 2. Bronchoscopic biopsy. 3. Sputum for cytology. Will start with the sputum for cytology. IR suggested to do the biopsy of the rib. They do have an opening for today at 12:30. Patient has been made NPO. Coags are normal. Will make further treatment plans based upon the exact pathology. Will check bone scan, given the extension into the ribs. Thank you for the consult, Will follow along with you. CC: Mir. - Time Spent With Patient Time Spent with Patient (in minutes): 35
[2021-05-06] MEDS: Ampicillin Sodium/Sulbactam Na 3 GM in 0.9 % Sodium Chloride 100 ML IV ×3 (08:48→20:53)
--- NOTE | 2021-05-06 09:30 | PC.NURSE ---
Dr. Rider called and requested pt to be NPO because she is scheduled to have a biopsy at 1230 this afternoon. Procedure explained to pt with her daughter at bedside. wardrobe consultant used. Pt on TB precaution. Pt moved to ED 1 with negative pressure. Everything explained using wardrobe consultant and pt's daughter at bedside.
--- NOTE | 2021-05-06 10:27 | MHC.IC ---
Discussed with Dr Ramírez this a.m. Pt needs airborne precautions due to r/o active TB. He has ordered AFB x3.
[2021-05-06 10:59] LABS: Glucose, Whole Blood 125 mg/dL (60-115)
--- NOTE | 2021-05-06 13:11 | HO.PM.IMPN ---
Subjective Subjective Date of Service: 05/06/21 Interval History: Seen and examined this morning with the use of a tray drier Admitted for new lung mass Patient reports 2 year history of left-sided pain. She reports sweats and hemoptysis She has some shortness of breath Review of Systems Review of Systems: Yes all other systems are reviewed and are negative Constitutional Constitutional: Denies chills and Denies fever(s) Cardiovascular Cardiovascular: Denies chest pain Respiratory Respiratory: Reports hemoptysis Physical Exam Vital Signs: Vital Signs: Last Vital Signs Temp 98.2 F 05/06/21 10:51 Pulse 70 05/06/21 10:51 Resp 17 05/06/21 10:51 BP 157/57 H 05/06/21 10:51 Pulse Ox 97 05/06/21 10:51 Body Mass Index 24.7 Const: General: comfortable, no acute distress, alert and awake Nutritional Appearance: thin HENMT: Head: Yes normocephalic and Yes atraumatic Eyes: Sclerae: sclerae normal Pupils: Equal, round and reactive pupils present Chest: Other: tender to palpation left side ribs Resp: Effort & Inspection: normal respiratory effort and no respiratory distress Auscultation: diminished lung sounds Cardio: Rate: regular rate Rhythm: regular rhythm GI: Palpation (GI): Soft to palpation and nontender Neuro: Cranial nerves: Yes CN's II-XII intact bilaterally, Yes Equal, round and reactive pupils present and Yes Bilaterally intact EOM present Extrem: General: Yes normal to inspection Objective Data Active Medications Acetaminophen (Acetaminophen 325 Mg Tablet) 650 mg PO Q6H PRN PRN Reason: Pain, Mild (Pain Scale 1-3) Dextrose (Dextrose 50 % 25 Gm/50 Ml Vial) 25 gm IVPUSH Q15M PRN; Protocol PRN Reason: per Hypoglycemia Standing Ord. Enoxaparin Sodium (Enoxaparin Sodium 40 Mg/0.4 Ml Syringe) 40 mg SUBCUT Q24H [facility] Last Admin: 05/06/21 09:05 Dose: Not Given Documented by: AMAYA Non-Admin Reason: pt has biopsy at 1230 Glucose (Glucose Gel 15 Gm Gel..Gram.) 15 gm PO Q15M PRN; Protocol PRN Reason: per Hypoglycemia Standing Ord. Ampicillin Sodium/Sulbactam (Sodium 3 gm/ Sodium Chloride) 100 mls @ 200 mls/hr IV Q6H [facility] Last Infusion: 05/06/21 10:12 Dose: 0 mls/hr Documented by: AMAYA Insulin Human Lispro (Insulin Lispro 100 Unit/Ml 3 Ml Vial) 0 unit SUBCUT QIDACHS [facility]; Protocol Last Admin: 05/06/21 10:53 Dose: Not Given Documented by: BHAVANA Non-Admin Reason: NPO Melatonin (Melatonin 3 Mg Tablet) 6 mg PO BEDTIME PRN PRN Reason: Insomnia Senna (Sennosides 8.6 Mg Tablet) 17.2 mg PO BEDTIME PRN PRN Reason: Constipation Sodium Chloride (0.9 % Sodium Chloride Flush 3 Ml Syringe) 3 ml IVFLUSH QSHIFT [facility] Last Admin: 05/06/21 08:09 Dose: 3 ml Documented by: AMAYA Labs CBC & Chem 7: 05/06/21 03:03 05/06/21 03:03 Labs: Laboratory Results - last 24 hr 05/05/21 05/05/21 05/05/21 21:10 21:10 21:10 MCV 85.2 MCH 28.5 MCHC 33.4 RDW 13.8 Plt Count 566 H MPV 9.0 L Immature Gran % (Auto) 0.5 H Neut % (Auto) 69.3 Lymph % (Auto) 22.8 [place] % (Auto) 6.5 Eos % (Auto) 0.6 Baso % (Auto) 0.3 Lymph # (Auto) 3.4 [place] # (Auto) 1.0 Eos # (Auto) 0.1 Baso # (Auto) 0.1 Abs Immat Gran (auto) 0.07 H Absolute Neuts (auto) 10.4 H Absolute Nucleated RBC 0.000 Nucleated RBC % (auto) 0.0 PT INR APTT D-Dimer Anion Gap 15 Estim Creat Clear Calc 46.6 Estimated GFR > 60 POC Glucose Random Glucose 191 H Lactic Acid Calcium 10.5 H Troponin I High Sens 5.8 COVID-19 ([facility]) COVID-19 Clin Com 05/05/21 05/05/21 05/06/21 21:11 23:30 01:55 MCV MCH MCHC RDW Plt Count MPV Immature Gran % (Auto) Neut % (Auto) Lymph % (Auto) [place] % (Auto) Eos % (Auto) Baso % (Auto) Lymph # (Auto) [place] # (Auto) Eos # (Auto) Baso # (Auto) Abs Immat Gran (auto) Absolute Neuts (auto) Absolute Nucleated RBC Nucleated RBC % (auto) PT 13.0 INR 1.1 APTT 33.1 D-Dimer Anion Gap Estim Creat Clear Calc Estimated GFR POC Glucose Random Glucose Lactic Acid 1.2 Calcium Troponin I High Sens COVID-19 ([facility]) Negative COVID-19 Clin Com See Note 05/06/21 05/06/21 05/06/21 03:03 03:03 03:03 MCV 86.3 MCH 28.4 MCHC 33.0 RDW 13.8 Plt Count 518 H MPV 9.1 L Immature Gran % (Auto) 0.4 Neut % (Auto) 64.3 Lymph % (Auto) 26.7 [place] % (Auto) 7.7 Eos % (Auto) 0.5 Baso % (Auto) 0.4 Lymph # (Auto) 3.7 [place] # (Auto) 1.1 Eos # (Auto) 0.1 Baso # (Auto) 0.1 Abs Immat Gran (auto) 0.06 H Absolute Neuts (auto) 8.8 H Absolute Nucleated RBC 0.000 Nucleated RBC % (auto) 0.0 PT INR APTT D-Dimer Anion Gap 13 Estim Creat Clear Calc 52.0 Estimated GFR > 60 POC Glucose Random Glucose 150 H Lactic Acid Calcium 9.8 D Troponin I High Sens 6.1 COVID-19 ([facility]) COVID-19 Clin Com 05/06/21 05/06/21 05/06/21 03:03 07:21 10:56 MCV MCH MCHC RDW Plt Count MPV Immature Gran % (Auto) Neut % (Auto) Lymph % (Auto) [place] % (Auto) Eos % (Auto) Baso % (Auto) Lymph # (Auto) [place] # (Auto) Eos # (Auto) Baso # (Auto) Abs Immat Gran (auto) Absolute Neuts (auto) Absolute Nucleated RBC Nucleated RBC % (auto) PT INR APTT D-Dimer 577 Anion Gap Estim Creat Clear Calc Estimated GFR POC Glucose 128 H 125 H Random Glucose Lactic Acid Calcium Troponin I High Sens COVID-19 ([facility]) COVID-19 Clin Com Assessment and Plan (1) Cavitary lesion of lung: Status: Acute Assessment and Plan: This is a 85-year-old female with a past medical history of diabetes, chronic abdominal pain, history of abdominal surgery recently came from [facility] to [facility]. presented to the hospital today with a chief complaint of abdominal pain found to have large cavitary lung lesion with invasion into ribs. Left lung cavitary lesion: Malignancy vs TB vs abscess Seen by pulmonary, need to r/o TB If TB is negative, will need tissue diagnosis for malignancy Tspot, afb sputum cultures ordered Oncology following continue empiric unasyn Rib fracture r/t to above lung lesion pain control Nausea/vomiting/abdominal discomfort: No n/v at this time CT abdomen showed no acute findings. Supportive care. Diabetes: SSI, POCs Code status - full code DVT prophylaxis: Lovenox Code status: Full code Quality Stroke Does the patient have a stroke diagnosis?: No VTE Prior VTE?: No VTE Risk Level:: Medical - moderate - high VTE Device Contraindication: Treatment Not Indicated VTE Drug Contraindication: N/A - Med Ordered
--- NOTE | 2021-05-06 14:32 | PM.CNPUL ---
History of Present Illness History of Present Illness Consult date: 05/06/21 Requesting physician: Primitivo Roberts Chief complaint: Lung mass Narrative: 85-year-old lady, nonsmoker, 2 weeks from [facility], admitted on 05/06/2021 with chronic abdominal pain and chest discomfort. On ER evaluation patient was noted to have 8 cm cavitary left sided lung lesion with erosion to adjusting tissue. Patient denies cough or sputum production. She denies prior history of lung disease. REPLACED BY [facility] Past Medical History Medical History Diabetes Functional capacity: uses cane/walker Social History Social History Patient Tobacco Use Status: Never used Tobacco Use of substances other than those prescribed or required for medical reasons: No Advance Directives: No Advance Directives Information Provided: Yes Patient : No Meds Allergies Allergy/AdvReac Type Severity Reaction Status Date / Time No Known Allergies Allergy Verified 05/05/21 18:17 Active Medications: Current Medications Acetaminophen (Acetaminophen 325 Mg Tablet) 650 mg PO Q6H PRN PRN Reason: Pain, Mild (Pain Scale 1-3) Dextrose (Dextrose 50 % 25 Gm/50 Ml Vial) 25 gm IVPUSH Q15M PRN; Protocol PRN Reason: per Hypoglycemia Standing Ord. Enoxaparin Sodium (Enoxaparin Sodium 40 Mg/0.4 Ml Syringe) 40 mg SUBCUT Q24H [facility] Last Admin: 05/06/21 09:05 Dose: Not Given Documented by: Glucose (Glucose Gel 15 Gm Gel..Gram.) 15 gm PO Q15M PRN; Protocol PRN Reason: per Hypoglycemia Standing Ord. Ampicillin Sodium/Sulbactam (Sodium 3 gm/ Sodium Chloride) 100 mls @ 200 mls/hr IV Q6H [facility] Last Infusion: 05/06/21 10:12 Dose: Infused Documented by: Insulin Human Lispro (Insulin Lispro 100 Unit/Ml 3 Ml Vial) 0 unit SUBCUT QIDACHS [facility]; Protocol Last Admin: 05/06/21 10:53 Dose: Not Given Documented by: Lidocaine (Lidocaine 4 % Patch Adh..Patch) 1 patch TRANSDERMA DAILY [facility]; Protocol Melatonin (Melatonin 3 Mg Tablet) 6 mg PO BEDTIME PRN PRN Reason: Insomnia Oxycodone HCl (Oxycodone Hcl Immed Release 5 Mg Tablet) 5 mg PO Q6H PRN PRN Reason: Pain, Moderate (Pain Scale 4-6 Senna (Sennosides 8.6 Mg Tablet) 17.2 mg PO BEDTIME PRN PRN Reason: Constipation Sodium Chloride (0.9 % Sodium Chloride Flush 3 Ml Syringe) 3 ml IVFLUSH QSHIFT [facility] Last Admin: 05/06/21 08:09 Dose: 3 ml Documented by: Sodium Chloride (Sodium Chloride 3 % Inhalation 15 Ml Vial.Neb) 15 ml INHALE DAILY PRN PRN Reason: sputum sample Home Medications Medication Instructions Recorded Confirmed Last Taken Type tramadol 37.5 mg-acetaminophen 325 1 tab PO BID PRN 05/05/21 05/05/21 Unknown History mg tablet Physical Exam Vital Signs: Vital Signs: Last Vital Signs Temp 98.2 F 05/06/21 10:51 Pulse 70 05/06/21 10:51 Resp 17 05/06/21 10:51 BP 157/57 H 05/06/21 10:51 Pulse Ox 97 05/06/21 10:51 Body Mass Index 24.7 Const: General: no acute distress, alert and awake Eyes: Sclerae: sclerae normal EOM: EOMs intact bilaterally Neck: Neck: Yes no lymphadenopathy, Yes trachea midline and Yes supple Resp: Effort & Inspection: normal respiratory effort and no respiratory distress Auscultation: clear to auscultation bilaterally Cardio: Rate: regular rate Rhythm: regular rhythm Heart sounds: no gallops, no murmurs and no rubs GI: Palpation (GI): Soft to palpation and Other GI palpation findings present ( Nontender) Auscultation: normal bowel sounds Extrem: General: Yes no pedal edema, No clubbing and No cyanosis Results Laboratory Findings CBC and BMP: 05/06/21 03:03 05/06/21 03:03 ABG, PT/INR, D-dimer: PT/INR, D-dimer PT 13.0 SEC (9.9-13.0) 05/05/21 21:11 INR 1.1 (0.9-1.1) 05/05/21 21:11 D-Dimer 577 NG/ML 05/06/21 03:03 Abnormal lab findings: Abnormal Labs 05/05/21 05/05/21 05/06/21 21:10 21:10 03:03 WBC 15.0 H 13.7 H RBC 3.58 L 3.20 L Hgb 10.2 L 9.1 L Hct 30.5 L 27.6 L Plt Count 566 H 518 H MPV 9.0 L 9.1 L Immature Gran % (Auto) 0.5 H Abs Immat Gran (auto) 0.07 H 0.06 H Absolute Neuts (auto) 10.4 H 8.8 H Sodium 132 L Chloride 94 L POC Glucose Random Glucose 191 H Calcium 10.5 H 05/06/21 05/06/21 05/06/21 03:03 07:21 10:56 WBC RBC Hgb Hct Plt Count MPV Immature Gran % (Auto) Abs Immat Gran (auto) Absolute Neuts (auto) Sodium 133 L Chloride POC Glucose 128 H 125 H Random Glucose 150 H Calcium Assessment and Plan (1) Cavitary lesion of lung: Status: Acute Impression: 85-year-old lady recently from [facility] admitted with chronic abdominal pain and incidentally found 8 cm cavitary left lung lesion. Malignant versus TB versus pulmonary abscess. Recommendation: Rule out infectious TB with 3 sputum smears. Start on empiric Unasyn. Biopsy after TB rule out. Procedures Date of Service Date of Service: 05/06/21
[2021-05-06] MEDS: oxyCODONE HCl Immed Release 5 MG TABLET PO (16:06)
[2021-05-06 16:39] LABS: Glucose, Whole Blood 208 mg/dL (60-115)
[2021-05-06] MEDS: Insulin Lispro 100 UNIT/ML 3 ML VIAL SUBCUT ×2 (16:53→21:14)
[2021-05-06 21:10] LABS: Glucose, Whole Blood 159 mg/dL (60-115)
[2021-05-07] MEDS: Ampicillin Sodium/Sulbactam Na 3 GM in 0.9 % Sodium Chloride 100 ML IV ×4 (03:13→21:32)
[2021-05-07 03:27] VITALS: BP 140/68; PULSE 68; RESP 18; TEMP 36.8; O2SAT 97
[2021-05-07 07:09] LABS: Hematocrit 28.5 % (37-47); Hemoglobin 9.1 g/dl (12.0-16.0); Mean Corpuscular HGB Conc 31.9 g/dl (31.0-35.0); Mean Corpuscular Hemoglobin 27.7 pg (27.0-33.0); Mean Corpuscular Volume 86.6 fL (80-98); Mean Platelet Volume 9.5 fL (9.4-12.3); Platelet Count 528 X10*3/uL (160-400); Red Blood Count 3.29 X10*6/uL (4.20-5.50); Red Cell Distribution Width 13.9 % (11.0-16.0); White Blood Count 11.3 X10*3/uL (4.8-10.8)
[2021-05-07 07:22] LABS: Anion Gap 12 (12-20); Blood Urea Nitrogen 9 mg/dL (9-16); Carbon Dioxide 30 mmol/L (22-29); Chloride 100 mmol/L (96-108); Creatinine Clr Calc Pharmacy 53.6; Estimated Glomerular Filt Rate > 60; Glucose Random 120 mg/dL (60-115); Potassium 3.5 mmol/L (3.3-5.1); Sodium 138 mmol/L (135-145)
[2021-05-07 08:00] VITALS: BP 156/67; PULSE 72; RESP 20; TEMP 36.4; O2SAT 92
[2021-05-07 08:07] LABS: Glucose, Whole Blood 128 mg/dL (60-115)
[2021-05-07] MEDS: Enoxaparin Sodium 40 MG/0.4 ML SYRINGE SUBCUT (08:52)
[2021-05-07] MEDS: 0.9 % Sodium Chloride Flush 3 ML SYRINGE IVFLUSH ×2 (08:58→21:32)
[2021-05-07 11:24] VITALS: BP 165/78; PULSE 73; RESP 18; TEMP 36.5; O2SAT 99
--- NOTE | 2021-05-07 11:55 | MHC.CM.PN ---
met with pt who is independent cm ashly is not indicated pt reprts having her own ride home
[2021-05-07 12:11] LABS: Glucose, Whole Blood 211 mg/dL (60-115)
--- NOTE | 2021-05-07 12:12 | PM.IMPN ---
Progress Note: A&P (1) Lung mass: Status: Acute (2) Rib fracture: Status: Acute Assessment and Plan: This is a 85-year-old female with a past medical history of diabetes, chronic abdominal pain, history of abdominal surgery recently came from [facility] to .. presented to the hospital today with a chief complaint of abdominal pain found to have large cavitary lung lesion with invasion into ribs. Left lung cavitary lesion. Malignancy vs TB vs abscess Seen by pulmonary, If TB is negative, will need tissue diagnosis for malignancy Tspot, afb sputum cultures ordered, first sputum was not good, will attempt second sample Oncology following continue empiric unasyn Rib fracture r/t to above lung lesion pain control Nausea/vomiting/abdominal discomfort CT abdomen showed no acute findings.? Supportive care. Diabetes SSI, ada diet Code status - full code DVT prophylaxis:? Lovenox Attending Dr. Ashley Subjective Subjective Date of Service: 05/08/21 Review of Systems Follow up lung mass vs TB Physical Exam Vital Signs: Vital Signs: Last Vital Signs Temp 97.7 F 05/07/21 11:24 Pulse 73 05/07/21 11:24 Resp 18 05/07/21 11:24 BP 165/78 H 05/07/21 11:24 Pulse Ox 99 05/07/21 11:24 Body Mass Index 24.7 Appearing in no acute distress lung sounds are clear to auscultation heart regular rate rhythm, clear S1, S2 positive bowel sounds, abdomen is soft, nontender neuro patient is alert x3, no focal deficits Objective Data Current Medications Acetaminophen (Acetaminophen 325 Mg Tablet) 650 mg PO Q6H PRN PRN Reason: Pain, Mild (Pain Scale 1-3) Dextrose (Dextrose 50 % 25 Gm/50 Ml Vial) 25 gm IVPUSH Q15M PRN; Protocol PRN Reason: per Hypoglycemia Standing Ord. Docusate Sodium (Docusate Sodium 100 Mg Capsule) 100 mg PO BEDTIME ON LICENSE OF [facility] Last Admin: 05/06/21 21:00 Dose: Not Given Documented by: Enoxaparin Sodium (Enoxaparin Sodium 40 Mg/0.4 Ml Syringe) 40 mg SUBCUT Q24H ON LICENSE OF [facility] Last Admin: 05/07/21 08:52 Dose: 40 mg Documented by: Glucose (Glucose Gel 15 Gm Gel..Gram.) 15 gm PO Q15M PRN; Protocol PRN Reason: per Hypoglycemia Standing Ord. Ampicillin Sodium/Sulbactam (Sodium 3 gm/ Sodium Chloride) 100 mls @ 200 mls/hr IV Q6H ON LICENSE OF [facility] Last Admin: 05/07/21 08:54 Dose: 200 mls/hr Documented by: Insulin Human Lispro (Insulin Lispro 100 Unit/Ml 3 Ml Vial) 0 unit SUBCUT QIDACHS ON LICENSE OF [facility]; Protocol Last Admin: 05/07/21 08:52 Dose: Not Given Documented by: Lidocaine (Lidocaine 4 % Patch Adh..Patch) 1 patch TRANSDERMA DAILY ON LICENSE OF [facility]; Protocol Melatonin (Melatonin 3 Mg Tablet) 6 mg PO BEDTIME PRN PRN Reason: Insomnia Oxycodone HCl (Oxycodone Hcl Immed Release 5 Mg Tablet) 5 mg PO Q6H PRN PRN Reason: Pain, Moderate (Pain Scale 4-6 Last Admin: 05/06/21 16:06 Dose: 5 mg Documented by: Senna (Sennosides 8.6 Mg Tablet) 17.2 mg PO BEDTIME PRN PRN Reason: Constipation Sodium Chloride (0.9 % Sodium Chloride Flush 3 Ml Syringe) 3 ml IVFLUSH QSHIFT ON LICENSE OF [facility] Last Admin: 05/07/21 08:58 Dose: 3 ml Documented by: Sodium Chloride (Sodium Chloride 3 % Inhalation 15 Ml Vial.Neb) 15 ml INHALE DAILY PRN PRN Reason: sputum sample Labs CBC & Chem 7: 05/08/21 08:14 05/08/21 08:14 Labs: Laboratory Results - last 24 hr 05/06/21 05/06/21 05/07/21 16:17 21:03 06:19 MCV 86.6 MCH 27.7 MCHC 31.9 RDW 13.9 Plt Count 528 H MPV 9.5 Absolute Nucleated RBC 0.000 Nucleated RBC % (auto) 0.0 Anion Gap Estim Creat Clear Calc Estimated GFR POC Glucose 208 H 159 H Random Glucose Calcium 05/07/21 05/07/21 05/07/21 06:19 07:54 12:05 MCV MCH MCHC RDW Plt Count MPV Absolute Nucleated RBC Nucleated RBC % (auto) Anion Gap 12 Estim Creat Clear Calc 53.6 Estimated GFR > 60 POC Glucose 128 H 211 H Random Glucose 120 H Calcium 10.0 Microbiology Microbiology Results: Microbiology 05/06/21 18:22 Sputum - Expectorated Gram Stain - Final 05/06/21 18:22 Sputum - Expectorated Sputum Culture - Final 05/06/21 01:57 Blood - Venous Blood Culture - Preliminary No growth after 24 hours. 05/06/21 01:55 Blood - Venous Blood Culture - Preliminary No growth after 24 hours. Quality Stroke Does the patient have a stroke diagnosis?: No VTE Prior VTE?: No VTE Risk Level:: Medical - moderate - high VTE Device Contraindication: Treatment Not Indicated VTE Drug Contraindication: N/A - Med Ordered
--- NOTE | 2021-05-07 12:20 | ECG_ITS ---
Test Reason : HIGH BP Blood Pressure : / mmHG Vent. Rate : 085 BPM Atrial Rate : 079 BPM P-R Int : 000 ms QRS Dur : 076 ms QT Int : 342 ms P-R-T Axes : 000 048 066 degrees QTc Int : 406 ms Normal sinus rhythm with occasional Premature ventricular complexes Nonspecific ST and T wave abnormality Abnormal ECG When compared with ECG of 05-MAY-2021 18:55, No significant change was found Referred By: Bianca Hester Electronically Signed By:SONALI DILLON
[2021-05-07] MEDS: Insulin Lispro 100 UNIT/ML 3 ML VIAL SUBCUT ×2 (12:26→21:38)
--- NOTE | 2021-05-07 13:59 | MHC.CM.PN ---
pt on droplet precautions spoke with pt on phone and called [facility]by mc with whom she lives [phone],she explains that pt came here from [facility] 3 weeks ago she will staying with jesusita ,financial counsleor has met with family dc plAN at this time is home with colby servcies needed tbd by pts hospitila course
[2021-05-07] MEDS: Lidocaine 4 % Patch ADH..PATCH 1 PATCH TRANSDERMA (14:27)
[2021-05-07 14:55] VITALS: BP 165/69; PULSE 74; RESP 18; TEMP 36.2; O2SAT 98
[2021-05-07 16:04] LABS: Glucose, Whole Blood 96 mg/dL (60-115)
[2021-05-07 19:07] VITALS: BP 168/65; PULSE 80; RESP 20; TEMP 36.8; O2SAT 98
[2021-05-07 20:01] LABS: Glucose, Whole Blood 229 mg/dL (60-115)
[2021-05-07] MEDS: oxyCODONE HCl Immed Release 5 MG TABLET PO (21:35)
[2021-05-07 23:29] VITALS: BP 185/72; PULSE 67; RESP 17; TEMP 37.2; O2SAT 97
[2021-05-08] VITALS (8 sets, daily range): BP systolic 139–171; BP diastolic 58–74; PULSE 72–88; RESP 18–20; TEMP 36.2–37.4; O2SAT 95–99
[2021-05-08] MEDS: Ampicillin Sodium/Sulbactam Na 3 GM in 0.9 % Sodium Chloride 100 ML IV ×4 (03:00→22:19)
[2021-05-08] MEDS: oxyCODONE HCl Immed Release 5 MG TABLET PO (06:40)
[2021-05-08 08:21] LABS: Glucose, Whole Blood 141 mg/dL (60-115)
[2021-05-08 08:25] LABS: Hemoglobin 8.8 g/dl (12.0-16.0); Mean Corpuscular HGB Conc 32.6 g/dl (31.0-35.0); Mean Corpuscular Hemoglobin 27.9 pg (27.0-33.0); Mean Corpuscular Volume 85.7 fL (80-98); Mean Platelet Volume 8.5 fL (9.4-12.3); Platelet Count 471 X10*3/uL (160-400); Red Blood Count 3.15 X10*6/uL (4.20-5.50); Red Cell Distribution Width 13.8 % (11.0-16.0); White Blood Count 11.3 X10*3/uL (4.8-10.8)
[2021-05-08 08:39] LABS: Anion Gap 11 (12-20); Blood Urea Nitrogen 8 mg/dL (9-16); Carbon Dioxide 31 mmol/L (22-29); Chloride 98 mmol/L (96-108); Creatinine Clr Calc Pharmacy 49.1; Estimated Glomerular Filt Rate > 60; Glucose Random 142 mg/dL (60-115); Potassium 3.4 mmol/L (3.3-5.1); Sodium 137 mmol/L (135-145)
[2021-05-08] MEDS: 0.9 % Sodium Chloride Flush 3 ML SYRINGE IVFLUSH ×3 (10:08→22:24)
[2021-05-08] MEDS: Enoxaparin Sodium 40 MG/0.4 ML SYRINGE SUBCUT (10:08)
[2021-05-08] MEDS: Lidocaine 4 % Patch ADH..PATCH 1 PATCH TRANSDERMA (10:09)
--- NOTE | 2021-05-08 11:01 | PM.IMPN ---
Progress Note: A&P (1) Rib fracture: Status: Acute (2) Cavitary lesion of lung: Status: Acute (3) Lung mass: Status: Acute Assessment and Plan: This is a 85-year-old female with a past medical history of diabetes, chronic abdominal pain, history of abdominal surgery recently came from [facility] to [facility]. presented to the hospital today with a chief complaint of abdominal pain found to have large cavitary lung lesion with invasion into ribs. Left lung cavitary lesion. Malignancy vs TB vs abscess Seen by pulmonary, If TB is negative, will need tissue diagnosis for malignancy Tspot, afb sputum cultures ordered, first sputum was not good, will attempt second sample, patient having difficulty collecting a good sample Oncology following continue empiric unasyn Rib fracture r/t to above lung lesion pain control Nausea/vomiting/abdominal discomfort. nausea resolved CT abdomen showed no acute findings.? Supportive care. Diabetes SSI, ada diet Code status - full code DVT prophylaxis:? Lovenox Attending Dr. Ashley Subjective Subjective Date of Service: 05/08/21 Review of Systems Follow up lung mass feels good today still with left sided abd pain radiating to back Physical Exam Vital Signs: Vital Signs: Last Vital Signs Temp 98.5 F 05/08/21 08:00 Pulse 72 05/08/21 08:00 Resp 19 05/08/21 08:00 BP 165/71 H 05/08/21 08:00 Pulse Ox 95 05/08/21 08:00 Body Mass Index 24.7 Appearing in no acute distress lung sounds are clear to auscultation heart regular rate rhythm, clear S1, S2 positive bowel sounds, abdomen is soft, nontender neuro patient is alert x3, no focal deficits Objective Data Current Medications Acetaminophen (Acetaminophen 325 Mg Tablet) 650 mg PO Q6H PRN PRN Reason: Pain, Mild (Pain Scale 1-3) Dextrose (Dextrose 50 % 25 Gm/50 Ml Vial) 25 gm IVPUSH Q15M PRN; Protocol PRN Reason: per Hypoglycemia Standing Ord. Docusate Sodium (Docusate Sodium 100 Mg Capsule) 100 mg PO BEDTIME [facility] Last Admin: 05/07/21 21:31 Dose: Not Given Documented by: Enoxaparin Sodium (Enoxaparin Sodium 40 Mg/0.4 Ml Syringe) 40 mg SUBCUT Q24H [facility] Last Admin: 05/08/21 10:08 Dose: 40 mg Documented by: Glucose (Glucose Gel 15 Gm Gel..Gram.) 15 gm PO Q15M PRN; Protocol PRN Reason: per Hypoglycemia Standing Ord. Ampicillin Sodium/Sulbactam (Sodium 3 gm/ Sodium Chloride) 100 mls @ 200 mls/hr IV Q6H [facility] Last Admin: 05/08/21 10:09 Dose: 200 mls/hr Documented by: Insulin Human Lispro (Insulin Lispro 100 Unit/Ml 3 Ml Vial) 0 unit SUBCUT QIDACHS [facility]; Protocol Last Admin: 05/08/21 10:02 Dose: Not Given Documented by: Lidocaine (Lidocaine 4 % Patch Adh..Patch) 1 patch TRANSDERMA DAILY [facility]; Protocol Last Admin: 05/08/21 10:09 Dose: 1 patch Documented by: Melatonin (Melatonin 3 Mg Tablet) 6 mg PO BEDTIME PRN PRN Reason: Insomnia Oxycodone HCl (Oxycodone Hcl Immed Release 5 Mg Tablet) 5 mg PO Q6H PRN PRN Reason: Pain, Moderate (Pain Scale 4-6 Last Admin: 05/08/21 06:40 Dose: 5 mg Documented by: Senna (Sennosides 8.6 Mg Tablet) 17.2 mg PO BEDTIME PRN PRN Reason: Constipation Sodium Chloride (0.9 % Sodium Chloride Flush 3 Ml Syringe) [facility] Last Admin: 05/08/21 10:08 Dose: 3 ml Documented by: Sodium Chloride (Sodium Chloride 3 % Inhalation 15 Ml Vial.Neb) 15 ml INHALE DAILY PRN PRN Reason: sputum sample Labs CBC & Chem 7: 05/08/21 08:14 05/08/21 08:14 Labs: Laboratory Results - last 24 hr 05/07/21 05/07/21 05/07/21 12:05 15:59 19:55 MCV MCH MCHC RDW Plt Count MPV Absolute Nucleated RBC Nucleated RBC % (auto) Anion Gap Estim Creat Clear Calc Estimated GFR POC Glucose 211 H 96 229 H Random Glucose Calcium 05/08/21 05/08/21 05/08/21 08:10 08:14 08:14 MCV 85.7 MCH 27.9 MCHC 32.6 RDW 13.8 Plt Count 471 H MPV 8.5 L Absolute Nucleated RBC 0.000 Nucleated RBC % (auto) 0.0 Anion Gap 11 L Estim Creat Clear Calc 49.1 Estimated GFR > 60 POC Glucose 141 H Random Glucose 142 H Calcium 10.0 Microbiology Microbiology Results: Microbiology 05/06/21 01:57 Blood - Venous Blood Culture - Preliminary No growth after 48 hours. 05/06/21 01:55 Blood - Venous Blood Culture - Preliminary No growth after 48 hours. 05/06/21 18:27 Sputum - Expectorated Direct Acid Fast Bacilli Smear - Final 05/06/21 18:27 Sputum - Expectorated Acid Fast Bacilli Culture & Smear - Final 05/06/21 18:22 Sputum - Expectorated Gram Stain - Final 05/06/21 18:22 Sputum - Expectorated Sputum Culture - Final Quality Stroke Does the patient have a stroke diagnosis?: No VTE Prior VTE?: No VTE Risk Level:: Medical - moderate - high VTE Device Contraindication: Treatment Not Indicated VTE Drug Contraindication: N/A - Med Ordered
[2021-05-08 11:35] LABS: Glucose, Whole Blood 183 mg/dL (60-115)
[2021-05-08] MEDS: Sodium Chloride 3 % Inhalation 15 ML VIAL.NEB 4 ML INHALE ×2 (11:49→15:52)
--- NOTE | 2021-05-08 12:20 | PC.RT ---
Hypertonic saline treatment given on 05/14/21 at 11:49 for induced sputum. Pt. had strong, non-productive cough after treatment.
--- NOTE | 2021-05-08 12:21 | PM.CCN ---
Critical Care Event Note Summary Date of Service: 05/08/21 Code activated: No Narrative: If patient fails to produce adequate specimens for AFB smears with hypertonic induced sputum culture, that would be an adequate evidence of noninfectivity, even if she has underlying active tuberculosis. Then, would suggest discontinuation of respiratory isolation and proceeding with biopsy of the cavitary pulmonary lesion. Critical Care Time (minutes): 0
[2021-05-08] MEDS: Insulin Lispro 100 UNIT/ML 3 ML VIAL SUBCUT ×3 (13:07→22:23)
--- NOTE | 2021-05-08 15:54 | PC.RT ---
hypertonic saline treatment given for sputum induction. no sputum obtained
[2021-05-08 16:32] LABS: Glucose, Whole Blood 275 mg/dL (60-115)
[2021-05-08 20:00] LABS: Glucose, Whole Blood 154 mg/dL (60-115)
[2021-05-08] MEDS: Docusate Sodium 100 MG CAPSULE PO (22:19)
[2021-05-08] MEDS: Melatonin 3 MG TABLET 6 MG PO (22:23)
[2021-05-09] MEDS: Ampicillin Sodium/Sulbactam Na 3 GM in 0.9 % Sodium Chloride 100 ML IV ×4 (03:19→21:31)
[2021-05-09 03:33] VITALS: BP 143/64; PULSE 86; RESP 20; TEMP 35.8; O2SAT 96
[2021-05-09 07:23] VITALS: BP 147/65; PULSE 74; RESP 20; TEMP 37.2; O2SAT 97
[2021-05-09 07:42] LABS: Glucose, Whole Blood 139 mg/dL (60-115)
[2021-05-09] MEDS: Enoxaparin Sodium 40 MG/0.4 ML SYRINGE SUBCUT (09:25)
[2021-05-09] MEDS: 0.9 % Sodium Chloride Flush 3 ML SYRINGE IVFLUSH ×2 (09:27→21:31)
[2021-05-09] MEDS: Lidocaine 4 % Patch ADH..PATCH 1 PATCH TRANSDERMA (09:27)
--- NOTE | 2021-05-09 10:04 | PM.PNPUL ---
Subjective Subjective Date of Service: 05/09/21 Interval history: The patient was seen on exam. Having hard time expectorating. Still waiting for the T spot. Will plan for bronchoscopy tomorrow at 11:00 am tomorrow the vaccine. Objective Data Labs CBC & Chem 7: 05/08/21 08:14 05/08/21 08:14 Labs: Laboratory Results - last 24 hr 05/08/21 05/08/21 05/08/21 11:28 16:27 19:55 POC Glucose 183 H 275 H 154 H 05/09/21 07:26 POC Glucose 139 H Microbiology Microbiology Results: Microbiology 05/06/21 01:57 Blood - Venous Blood Culture - Preliminary No growth after 48 hours. 05/06/21 01:55 Blood - Venous Blood Culture - Preliminary No growth after 48 hours. 05/06/21 18:27 Sputum - Expectorated Direct Acid Fast Bacilli Smear - Final 05/06/21 18:27 Sputum - Expectorated Acid Fast Bacilli Culture & Smear - Final 05/06/21 18:22 Sputum - Expectorated Gram Stain - Final 05/06/21 18:22 Sputum - Expectorated Sputum Culture - Final Review of Systems Constitutional: Denies night sweats Cardiovascular: Denies chest pain Respiratory: Reports pain on inspiration and Reports pain with cough Gastrointestinal: Denies abdominal pain Denies Neuro-related abnormal movements Physical Exam Vital Signs: Vital Signs: Last Vital Signs Temp 98.9 F 05/09/21 07:23 Pulse 74 05/09/21 07:23 Resp 20 05/09/21 07:23 BP 147/65 H 05/09/21 07:23 Pulse Ox 97 05/09/21 07:23 Body Mass Index 24.7 Const: General: alert Neck: Neck: Yes normal visual inspection, Yes full ROM and Yes no lymphadenopathy Chest: Chest palpation & inspection: normal inspection of the chest Resp: Auscultation: diminished lung sounds Cardio: Rate: regular rate Rhythm: regular rhythm Heart sounds: S1 normal heart sound present and S2 normal heart sound present Skin: General skin exam: rashes and/or lesions noted Procedures Date of Service Date of Service: 05/09/21 Assessment and Plan Assessment and plan (1) Rib fracture: Status: Acute (2) Cavitary lesion of lung: Status: Acute (3) Lung mass: Status: Acute Assessment and Plan: Scheduled for bronchoscopy tomorrow 10/5 11am Time Spent With Patient Time: Total time spent is greater than 50% in coordination of care (as documented) at patient's floor/unit and/or counseling patient: Time with patient: 15 - 24 minutes Progress Note: Quality Stroke Does the patient have a stroke diagnosis?: No
--- NOTE | 2021-05-09 10:47 | PM.IMPN ---
Progress Note: A&P (1) Rib fracture: Status: Acute (2) Cavitary lesion of lung: Status: Acute Assessment and Plan: This is a 85-year-old female with a past medical history of diabetes, chronic abdominal pain, history of abdominal surgery recently came from [facility] to .. presented to the hospital today with a chief complaint of abdominal pain found to have large cavitary lung lesion with invasion into ribs. Left lung cavitary lesion. Malignancy vs TB vs abscess vs other bacterial/fungal species Seen by pulmonary, plan for bronch tomorrow Tspot, afb sputum cultures ordered, first sputum was not good, will attempt second sample, patient having difficulty collecting a good sample Oncology consult continue empiric unasyn Rib fracture r/t to above lung lesion pain control Nausea/vomiting/abdominal discomfort. nausea resolved CT abdomen showed no acute findings.? Supportive care. Diabetes SSI, ada diet Code status - full code DVT prophylaxis:? Lovenox Attending Dr. Forte Subjective Subjective Date of Service: 05/09/21 Review of Systems Follow up lung mass No sob some rib pain Physical Exam Vital Signs: Vital Signs: Last Vital Signs Temp 98.9 F 05/09/21 07:23 Pulse 74 05/09/21 07:23 Resp 20 05/09/21 07:23 BP 147/65 H 05/09/21 07:23 Pulse Ox 97 05/09/21 07:23 Body Mass Index 24.7 Appearing in no acute distress lung sounds are clear to auscultation heart regular rate rhythm, clear S1, S2 positive bowel sounds, abdomen is soft, nontender neuro patient is alert x3, no focal deficits Objective Data Current Medications Acetaminophen (Acetaminophen 325 Mg Tablet) 650 mg PO Q6H PRN PRN Reason: Pain, Mild (Pain Scale 1-3) Dextrose (Dextrose 50 % 25 Gm/50 Ml Vial) 25 gm IVPUSH Q15M PRN; Protocol PRN Reason: per Hypoglycemia Standing Ord. Docusate Sodium (Docusate Sodium 100 Mg Capsule) 100 mg PO BEDTIME [facility] Last Admin: 05/08/21 22:19 Dose: 100 mg Documented by: Enoxaparin Sodium (Enoxaparin Sodium 40 Mg/0.4 Ml Syringe) 40 mg SUBCUT Q24H [facility] Last Admin: 05/09/21 09:25 Dose: 40 mg Documented by: Glucose (Glucose Gel 15 Gm Gel..Gram.) 15 gm PO Q15M PRN; Protocol PRN Reason: per Hypoglycemia Standing Ord. Ampicillin Sodium/Sulbactam (Sodium 3 gm/ Sodium Chloride) 100 mls @ 200 mls/hr IV Q6H [facility] Last Infusion: 05/09/21 10:41 Dose: Infused Documented by: Insulin Human Lispro (Insulin Lispro 100 Unit/Ml 3 Ml Vial) 0 unit SUBCUT QIDACHS [facility]; Protocol Last Admin: 05/09/21 09:07 Dose: Not Given Documented by: Lidocaine (Lidocaine 4 % Patch Adh..Patch) 1 patch TRANSDERMA DAILY [facility]; Protocol Last Admin: 05/09/21 09:27 Dose: 1 patch Documented by: Melatonin (Melatonin 3 Mg Tablet) 6 mg PO BEDTIME PRN PRN Reason: Insomnia Last Admin: 05/08/21 22:23 Dose: 6 mg Documented by: Oxycodone HCl (Oxycodone Hcl Immed Release 5 Mg Tablet) 5 mg PO Q6H PRN PRN Reason: Pain, Moderate (Pain Scale 4-6 Last Admin: 05/08/21 06:40 Dose: 5 mg Documented by: Senna (Sennosides 8.6 Mg Tablet) 17.2 mg PO BEDTIME PRN PRN Reason: Constipation Sodium Chloride (0.9 % Sodium Chloride Flush 3 Ml Syringe) [facility] Last Admin: 05/09/21 09:27 Dose: 3 ml Documented by: Sodium Chloride (Sodium Chloride 3 % Inhalation 15 Ml Vial.Neb) 15 ml INHALE DAILY PRN PRN Reason: sputum sample Sodium Chloride (Sodium Chloride 3 % Inhalation 15 Ml Vial.Neb) 4 ml INHALE Q4H PRN PRN Reason: sputum induction Last Admin: 05/08/21 15:52 Dose: 4 ml Documented by: Labs CBC & Chem 7: 05/08/21 08:14 05/08/21 08:14 Labs: Laboratory Results - last 24 hr 05/08/21 05/08/21 05/08/21 11:28 16:27 19:55 POC Glucose 183 H 275 H 154 H 05/09/21 07:26 POC Glucose 139 H Microbiology Microbiology Results: Microbiology 05/06/21 01:57 Blood - Venous Blood Culture - Preliminary No growth after 48 hours. 05/06/21 01:55 Blood - Venous Blood Culture - Preliminary No growth after 48 hours. 05/06/21 18:27 Sputum - Expectorated Direct Acid Fast Bacilli Smear - Final 05/06/21 18:27 Sputum - Expectorated Acid Fast Bacilli Culture & Smear - Final 05/06/21 18:22 Sputum - Expectorated Gram Stain - Final 05/06/21 18:22 Sputum - Expectorated Sputum Culture - Final Quality Stroke Does the patient have a stroke diagnosis?: No VTE Prior VTE?: No VTE Risk Level:: Medical - moderate - high VTE Device Contraindication: Treatment Not Indicated VTE Drug Contraindication: N/A - Med Ordered
[2021-05-09 11:12] VITALS: BP 135/63; PULSE 64; RESP 20; O2SAT 97
[2021-05-09 11:39] LABS: Glucose, Whole Blood 213 mg/dL (60-115)
[2021-05-09 11:46] LABS: TS Negative Control Passed; TS Panel A 0; TS Panel B 0; TS Positive Control Passed; TSpotTB Negative (SeeBelow)
[2021-05-09] MEDS: Insulin Lispro 100 UNIT/ML 3 ML VIAL SUBCUT ×3 (12:36→21:31)
--- NOTE | 2021-05-09 12:48 | MHC.CM.PN ---
Female 85 DX TB vs CA. Patient is not yet ready for discharge. A Bronch is planned for tomorrow. DP to [facility] home with family transport. CM will continue to follow.
[2021-05-09 15:24] VITALS: BP 185/67; PULSE 73; RESP 20; TEMP 36.1; O2SAT 98
[2021-05-09 16:23] LABS: Glucose, Whole Blood 214 mg/dL (60-115)
[2021-05-09] MEDS: Sodium Phosphate,Mono-Dibasic 133 ML ENEMA PR (18:36)
--- NOTE | 2021-05-09 18:37 | PC.NURSE ---
Aministered fleet enema. 300cc patient tolerated well. No bowel movement as of yet.
[2021-05-09 19:03] VITALS: BP 184/59; PULSE 66; RESP 20; TEMP 36.4; O2SAT 97
[2021-05-09 20:09] LABS: Glucose, Whole Blood 174 mg/dL (60-115)
[2021-05-09] MEDS: Docusate Sodium 100 MG CAPSULE PO (21:31)
[2021-05-10] VITALS (9 sets, daily range): BP systolic 126–170; BP diastolic 59–78; PULSE 54–90; RESP 15–20; TEMP 35.7–37.2; O2SAT 95–97
[2021-05-10] MEDS: Acetaminophen 325 MG TABLET 650 MG PO ×3 (00:01→23:02)
[2021-05-10] MEDS: Ampicillin Sodium/Sulbactam Na 3 GM in 0.9 % Sodium Chloride 100 ML IV ×4 (02:41→20:18)
[2021-05-10 06:35] LABS: Anion Gap 12 (12-20); Blood Urea Nitrogen 6 mg/dL (9-16); Calcium 9.6 mg/dL (8.4-10.2); Carbon Dioxide 31 mmol/L (22-29); Chloride 97 mmol/L (96-108); Creatinine Clr Calc Pharmacy 51.3; Estimated Glomerular Filt Rate > 60; Glucose Random 142 mg/dL (60-115); Potassium 3.1 mmol/L (3.3-5.1); Sodium 137 mmol/L (135-145)
[2021-05-10 06:43] LABS: INTERNATIONAL NORM RATIO 1.2 (0.9-1.1); Prothrombin Time 13.5 SEC (9.9-13.0)
[2021-05-10 06:53] LABS: Hematocrit 26.1 % (37-47); Hemoglobin 8.6 g/dl (12.0-16.0); Mean Corpuscular Hemoglobin 27.9 pg (27.0-33.0); Mean Corpuscular Volume 84.7 fL (80-98); Mean Platelet Volume 9.6 fL (9.4-12.3); Platelet Count 479 X10*3/uL (160-400); Red Blood Count 3.08 X10*6/uL (4.20-5.50); Red Cell Distribution Width 13.7 % (11.0-16.0)
[2021-05-10 07:32] LABS: Glucose, Whole Blood 151 mg/dL (60-115)
[2021-05-10] MEDS: Lidocaine 4 % Patch ADH..PATCH 1 PATCH TRANSDERMA (09:02)
[2021-05-10] MEDS: Potassium Chloride ER 20 MEQ TAB.ER.PRT 40 MEQ PO (09:03)
[2021-05-10] MEDS: 0.9 % Sodium Chloride Flush 3 ML SYRINGE IVFLUSH ×2 (09:04→12:27)
--- NOTE | 2021-05-10 09:22 | P.PNPL_ITS ---
Subjective Subjective Date of Service: 05/10/21 Interval history: The patient was seen on exam. Still having significant chest discomfort and back discomfort primarily due to the rib fractures in the masslike cavitary lesion. Her T spot was negative making it less likely to be tuberculosis. Therefore, I canceled the bronchoscopy and intervention Radiology agreed to perform a CT-guided biopsy which would likely provide better yield. Still she should have 3 specimens for AFB. The CT-guided biopsy will count for 1 will be able to send for microbiology and she should have 2 sputum specimens to completely remove her from the precautions. Depending on the biopsy results it not conclusive then will plan for bronchoscopy. But right now I did cancel the bronchoscopy Objective Data Labs CBC & Chem 7: 05/10/21 05:59 05/10/21 05:59 Labs: Laboratory Results - last 24 hr 05/06/21 05/09/21 05/09/21 09:01 11:27 16:11 WBC RBC Hgb Hct MCV MCH MCHC RDW Plt Count MPV Absolute Nucleated RBC Nucleated RBC % (auto) PT INR Sodium Potassium Chloride Carbon Dioxide Anion Gap BUN Creatinine Estim Creat Clear Calc Estimated GFR POC Glucose 213 H 214 H Random Glucose Calcium TB Test (T-Spot) Com Negative TB Test Nil Control Passed TB Test Panel A 0 TB Test Panel B 0 TB Test Positive Cntrl Passed 05/09/21 05/10/21 05/10/21 19:57 05:59 05:59 WBC 12.0 H RBC 3.08 L Hgb 8.6 L Hct 26.1 L MCV 84.7 MCH 27.9 MCHC 33.0 RDW 13.7 Plt Count 479 H MPV 9.6 Absolute Nucleated RBC 0.000 Nucleated RBC % (auto) 0.0 PT INR Sodium 137 Potassium 3.1 L Chloride 97 Carbon Dioxide 31 H Anion Gap 12 BUN 6 L Creatinine 0.69 Estim Creat Clear Calc 51.3 Estimated GFR > 60 POC Glucose 174 H Random Glucose 142 H Calcium 9.6 TB Test (T-Spot) Com TB Test Nil Control TB Test Panel A TB Test Panel B TB Test Positive Cntrl 05/10/21 05/10/21 05:59 07:28 WBC RBC Hgb Hct MCV MCH MCHC RDW Plt Count MPV Absolute Nucleated RBC Nucleated RBC % (auto) PT 13.5 H INR 1.2 H Sodium Potassium Chloride Carbon Dioxide Anion Gap BUN Creatinine Estim Creat Clear Calc Estimated GFR POC Glucose 151 H Random Glucose Calcium TB Test (T-Spot) Com TB Test Nil Control TB Test Panel A TB Test Panel B TB Test Positive [facility] Microbiology Microbiology Results: Microbiology 05/06/21 01:57 Blood - Venous Blood Culture - Preliminary No growth after 48 hours. 05/06/21 01:55 Blood - Venous Blood Culture - Preliminary No growth after 48 hours. 05/06/21 18:27 Sputum - Expectorated Direct Acid Fast Bacilli Smear - Final 05/06/21 18:27 Sputum - Expectorated Acid Fast Bacilli Culture & Smear - Final 05/06/21 18:22 Sputum - Expectorated Gram Stain - Final 05/06/21 18:22 Sputum - Expectorated Sputum Culture - Final Review of Systems Constitutional: Reports fatigue, Reports malaise and Denies night sweats Cardiovascular: Reports chest pain Respiratory: Reports pain on inspiration and Reports pain with cough Gastrointestinal: Denies abdominal pain Denies Neuro-related abnormal movements Endocrine: Reports fatigue Physical Exam Vital Signs: Vital Signs: Last Vital Signs Temp 96.3 F L 05/10/21 07:43 Pulse 64 05/10/21 07:43 Resp 20 05/10/21 07:43 BP 129/61 05/10/21 07:43 Pulse Ox 97 05/10/21 07:43 Body Mass Index 24.7 Const: General: alert Neck: Neck: Yes normal visual inspection, Yes full ROM and Yes no lymphadenopathy Chest: Chest palpation & inspection: normal inspection of the chest Resp: Auscultation: diminished lung sounds Cardio: Rate: regular rate Rhythm: regular rhythm Heart sounds: S1 normal heart sound present and S2 normal heart sound present GI: Palpation (GI): Soft to palpation and nontender Auscultation: normal bowel sounds Skin: General skin exam: rashes and/or lesions noted Procedures Date of Service Date of Service: 05/10/21 Assessment and Plan Assessment and plan (1) Rib fracture: Status: Acute (2) Cavitary lesion of lung: Status: Acute (3) Lung mass: Status: Acute Assessment and Plan: Cancel bronchoscopy for now CT-guided biopsy for pathology cytology, Gram staining culture fungal and AFB cultures Should have 3 specimens with negative AFB to completely removed out of the TB precautions. Should have 2 sputums done and a CT-guided sampling will be the 3rd. Consider bronchoscopy if no definitive diagnosis on the CT-guided biopsies Time Spent With Patient Time: Total time spent is greater than 50% in coordination of care (as documented) at patient's floor/unit and/or counseling patient: Time with patient: 25 - 35 minutes Progress Note: Quality Stroke Does the patient have a stroke diagnosis?: No
[2021-05-10 11:15] LABS: Glucose, Whole Blood 145 mg/dL (60-115)
[2021-05-10] MEDS: Sodium Chloride 3 % Inhalation 15 ML VIAL.NEB INHALE (12:03)
--- NOTE | 2021-05-10 12:23 | P.PNIM_ITS ---
Progress Note: A&P (1) Rib fracture: Status: Acute (2) Cavitary lesion of lung: Status: Acute (3) Hypokalemia: Status: Acute Assessment and Plan: This is a 85-year-old female with a past medical history of diabetes, chronic abdominal pain, history of abdominal surgery recently came from [facility] to .. presented to the hospital today with a chief complaint of abdominal pain found to have large cavitary lung lesion with invasion into ribs. Left lung cavitary lesion. Malignancy vs TB vs abscess vs other bacterial/fungal species Seen by pulmonary, plan for CT guided biopsy, check AFB, fungal cx Tspot negative, unable to produce sputum, will likely need 2 induced sputums to r/o precautions as well as 3rd from biopsy Oncology consult continue empiric unasyn Hypoakelemia Repleted trend Rib fracture r/t to above lung lesion pain control Nausea/vomiting/abdominal discomfort. nausea resolved CT abdomen showed no acute findings.? Supportive care. Normocytic anemia Diabetes SSI, ada diet Code status - full code DVT prophylaxis:? Lovenox Attending Dr. Mcnamara Subjective Subjective Date of Service: 05/10/21 Review of Systems Follow up lung mass Pain to left chest radiating to back where rib fractures are OOB to br and chair Physical Exam Vital Signs: Vital Signs: Last Vital Signs Temp 97.1 F 05/10/21 11:33 Pulse 77 05/10/21 11:33 Resp 20 05/10/21 11:33 BP 152/67 H 05/10/21 11:33 Pulse Ox 97 05/10/21 11:33 Body Mass Index 24.7 Appearing in no acute distress lung sounds are clear to auscultation heart regular rate rhythm, clear S1, S2 positive bowel sounds, abdomen is soft, nontender neuro patient is alert x3, no focal deficits Objective Data Current Medications Acetaminophen (Acetaminophen 325 Mg Tablet) 650 mg PO Q6H PRN PRN Reason: Pain, Mild (Pain Scale 1-3) Last Admin: 05/10/21 00:01 Dose: 650 mg Documented by: Dextrose (Dextrose 50 % 25 Gm/50 Ml Vial) 25 gm IVPUSH Q15M PRN; Protocol PRN Reason: per Hypoglycemia Standing Ord. Docusate Sodium (Docusate Sodium 100 Mg Capsule) 100 mg PO BEDTIME TOYIN Last Admin: 05/09/21 21:31 Dose: 100 mg Documented by: Enoxaparin Sodium (Enoxaparin Sodium 40 Mg/0.4 Ml Syringe) 40 mg SUBCUT Q24H FOR[facility]LY [facility], [facility]–1983 Last Admin: 05/10/21 08:22 Dose: Not Given Documented by: Glucose (Glucose Gel 15 Gm Gel..Gram.) 15 gm PO Q15M PRN; Protocol PRN Reason: per Hypoglycemia Standing Ord. Ampicillin Sodium/Sulbactam (Sodium 3 gm/ Sodium Chloride) 100 mls @ 200 mls/hr IV Q6H FOR[facility]LY [facility], 1928[facility]1983 Last Infusion: 05/10/21 10:48 Dose: Infused Documented by: Insulin Human Lispro (Insulin Lispro 100 Unit/Ml 3 Ml Vial) 0 unit SUBCUT QIDACHS FOR[facility]LY [facility], [facility]1983; Protocol Last Admin: 05/10/21 11:18 Dose: Not Given Documented by: Lidocaine (Lidocaine 4 % Patch Adh..Patch) 1 patch TRANSDERMA DAILY FOR[facility]LY [facility], [facility]1983; Protocol Last Admin: 05/10/21 09:02 Dose: 1 patch Documented by: Melatonin (Melatonin 3 Mg Tablet) 6 mg PO BEDTIME PRN PRN Reason: Insomnia Last Admin: 05/08/21 22:23 Dose: 6 mg Documented by: Oxycodone HCl (Oxycodone Hcl Immed Release 5 Mg Tablet) 5 mg PO Q6H PRN PRN Reason: Pain, Moderate (Pain Scale 4-6 Last Admin: 05/08/21 06:40 Dose: 5 mg Documented by: Polyethylene Glycol (Polyethylene Glycol 3350 17 Gm Powd.Pack) 17 gm PO DAILY PRN PRN Reason: constipation Senna (Sennosides 8.6 Mg Tablet) 17.2 mg PO BEDTIME PRN PRN Reason: Constipation Sodium Biphosphate/Sodium Phosphate (Sodium Phosphate,[place]-Dibasic 133 Ml Enema) 133 ml [place] ONCE PRN PRN Reason: constipation Last Admin: 05/09/21 18:36 Dose: 133 ml Documented by: Sodium Chloride (0.9 % Sodium Chloride Flush 3 Ml Syringe) 3 ml IVFLUSH [facility] Last Admin: 05/10/21 09:04 Dose: 3 ml Documented by: Sodium Chloride (Sodium Chloride 3 % Inhalation 15 Ml Vial.Neb) 15 ml INHALE DAILY PRN PRN Reason: sputum sample Last Admin: 05/10/21 12:03 Dose: 15 ml Documented by: Sodium Chloride (Sodium Chloride 3 % Inhalation 15 Ml Vial.Neb) 4 ml INHALE Q4H PRN PRN Reason: sputum induction Last Admin: 05/08/21 15:52 Dose: 4 ml Documented by: Labs CBC & Chem 7: 05/10/21 05:59 05/10/21 05:59 Labs: Laboratory Results - last 24 hr 05/09/21 05/09/21 05/10/21 16:11 19:57 05:59 MCV 84.7 MCH 27.9 MCHC 33.0 RDW 13.7 Plt Count 479 H MPV 9.6 Absolute Nucleated RBC 0.000 Nucleated RBC % (auto) 0.0 PT INR Anion Gap Estim Creat Clear Calc Estimated GFR POC Glucose 214 H 174 H Random Glucose Calcium 05/10/21 05/10/21 05/10/21 05:59 05:59 07:28 MCV MCH MCHC RDW Plt Count MPV Absolute Nucleated RBC Nucleated RBC % (auto) PT 13.5 H INR 1.2 H Anion Gap 12 Estim Creat Clear Calc 51.3 Estimated GFR > 60 POC Glucose 151 H Random Glucose 142 H Calcium 9.6 05/10/21 11:11 MCV MCH MCHC RDW Plt Count MPV Absolute Nucleated RBC Nucleated RBC % (auto) PT INR Anion Gap Estim Creat Clear Calc Estimated GFR POC Glucose 145 H Random Glucose Calcium Microbiology Microbiology Results: Microbiology 05/06/21 01:57 Blood - Venous Blood Culture - Preliminary No growth after 48 hours. 05/06/21 01:55 Blood - Venous Blood Culture - Preliminary No growth after 48 hours. 05/06/21 18:27 Sputum - Expectorated Direct Acid Fast Bacilli Smear - Final 05/06/21 18:27 Sputum - Expectorated Acid Fast Bacilli Culture & Smear - Final 05/06/21 18:22 Sputum - Expectorated Gram Stain - Final 05/06/21 18:22 Sputum - Expectorated Sputum Culture - Final Quality Stroke Does the patient have a stroke diagnosis?: No VTE Prior VTE?: No VTE Risk Level:: Medical - moderate - high VTE Device Contraindication: Treatment Not Indicated VTE Drug Contraindication: N/A - Med Ordered
[2021-05-10 16:44] LABS: Glucose, Whole Blood 139 mg/dL (60-115)
--- NOTE | 2021-05-10 17:41 | HO.RADPN ---
RADIOLOGY Narrative Narrative: Left lower lobe lung biopsy using coaxial system. 4 18 g core biopsies from cavitary lesion for pathology and micro. No pneumothorax.
[2021-05-10] MEDS: Lidocaine HCl 1 % MPF 5 ML VIAL SUBCUT (17:44)
[2021-05-10] MEDS: oxyCODONE HCl Immed Release 5 MG TABLET PO (20:21)
[2021-05-10] MEDS: Docusate Sodium 100 MG CAPSULE PO (20:34)
[2021-05-10 20:53] LABS: Glucose, Whole Blood 122 mg/dL (60-115)
[2021-05-10] MEDS: polyethylene glycoL 3350 17 GM POWD.PACK PO (23:02)
[2021-05-10] MEDS: Melatonin 3 MG TABLET 6 MG PO (23:02)
[2021-05-11] VITALS (8 sets, daily range): BP systolic 126–183; BP diastolic 59–78; PULSE 60–78; RESP 18–20; TEMP 36.1–37.4; O2SAT 94–99
[2021-05-11] MEDS: 0.9 % Sodium Chloride Flush 3 ML SYRINGE IVFLUSH ×3 (00:25→17:27)
[2021-05-11 00:43] LABS: Iron 22 mcg/dL (30-160); Percent Iron Saturation 10 % (15-50); Total Iron Binding Capacity 215 mcg/dL (228-428); Unsaturated Iron Binding 193 ug/dL
[2021-05-11] MEDS: Ampicillin Sodium/Sulbactam Na 3 GM in 0.9 % Sodium Chloride 100 ML IV ×4 (01:47→21:42)
[2021-05-11 07:14] LABS: Hematocrit 28.2 % (37-47); Hemoglobin 9.2 g/dl (12.0-16.0); Mean Corpuscular HGB Conc 32.6 g/dl (31.0-35.0); Mean Platelet Volume 9.1 fL (9.4-12.3); Platelet Count 485 X10*3/uL (160-400); Red Blood Count 3.28 X10*6/uL (4.20-5.50); Red Cell Distribution Width 13.8 % (11.0-16.0)
[2021-05-11 07:28] LABS: Glucose, Whole Blood 136 mg/dL (60-115)
[2021-05-11 07:33] LABS: Anion Gap 12 (12-20); Blood Urea Nitrogen 9 mg/dL (9-16); Calcium 10.1 mg/dL (8.4-10.2); Carbon Dioxide 33 mmol/L (22-29); Chloride 99 mmol/L (96-108); Creatinine Clr Calc Pharmacy 46.6; Estimated Glomerular Filt Rate > 60; Glucose Random 161 mg/dL (60-115); Potassium 3.6 mmol/L (3.3-5.1); Sodium 140 mmol/L (135-145)
[2021-05-11 08:42] LABS: Folate 18.6 ng/mL (> or = 4.0); Vitamin B12 > 2000 pg/mL (200-900)
[2021-05-11] MEDS: Lidocaine 4 % Patch ADH..PATCH 1 PATCH TRANSDERMA (08:59)
[2021-05-11] MEDS: Enoxaparin Sodium 40 MG/0.4 ML SYRINGE SUBCUT (09:06)
--- NOTE | 2021-05-11 09:33 | P.PNPL_ITS ---
Subjective Subjective Date of Service: 05/11/21 Interval history: The patient was seen and examined. She is status post CT- guided core biopsy of her left-sided cavitary masslike density. Specimen sent for both microbiology and for pathology. Were awaiting the results. I am hopeful that we have good healed and a clear diagnosis from the specimens. If however the patient does not have a clear diagnosis then bronchoscopy would be warranted. Her T spot was negative for tuberculosis. She appears to have 2- sputum AFBs. Once we have the 3rd AFB from the CT-guided biopsy finalize she can be taken off precautions. Hopefully they will be today. Objective Data Labs CBC & Chem 7: 05/11/21 06:50 05/11/21 06:50 Labs: Laboratory Results - last 24 hr 05/10/21 05/10/21 05/10/21 11:11 16:10 20:24 WBC RBC Hgb Hct MCV MCH MCHC RDW Plt Count MPV Absolute Nucleated RBC Nucleated RBC % (auto) Sodium Potassium Chloride Carbon Dioxide Anion Gap BUN Creatinine Estim Creat Clear Calc Estimated GFR POC Glucose 145 H 139 H 122 H Random Glucose Calcium Iron TIBC % Saturation Unsat Iron Binding Vitamin B12 Folate 05/11/21 05/11/21 05/11/21 00:13 06:50 06:50 WBC 11.0 H RBC 3.28 L Hgb 9.2 L Hct 28.2 L MCV 86.0 MCH 28.0 MCHC 32.6 RDW 13.8 Plt Count 485 H MPV 9.1 L Absolute Nucleated RBC 0.000 Nucleated RBC % (auto) 0.0 Sodium Potassium Chloride Carbon Dioxide Anion Gap BUN Creatinine Estim Creat Clear Calc Estimated GFR POC Glucose Random Glucose Calcium Iron 22 L TIBC 215 L % Saturation 10 L Unsat Iron Binding 193 Vitamin B12 > 2000 H Folate 18.6 05/11/21 05/11/21 06:50 07:20 WBC RBC Hgb Hct MCV MCH MCHC RDW Plt Count MPV Absolute Nucleated RBC Nucleated RBC % (auto) Sodium 140 Potassium 3.6 Chloride 99 Carbon Dioxide 33 H Anion Gap 12 BUN 9 Creatinine 0.76 Estim Creat Clear Calc 46.6 Estimated GFR > 60 POC Glucose 136 H Random Glucose 161 H Calcium 10.1 Iron TIBC % Saturation Unsat Iron Binding Vitamin B12 Folate Microbiology Microbiology Results: Microbiology 05/06/21 01:57 Blood - Venous Blood Culture - Final No growth after 5 days. 05/06/21 01:55 Blood - Venous Blood Culture - Final No growth after 5 days. 05/10/21 12:26 Sputum - Induced Gram Stain - Final 05/06/21 18:27 Sputum - Expectorated Direct Acid Fast Bacilli Smear - Final 05/06/21 18:27 Sputum - Expectorated Acid Fast Bacilli Culture & Smear - Final 05/06/21 18:22 Sputum - Expectorated Gram Stain - Final 05/06/21 18:22 Sputum - Expectorated Sputum Culture - Final Review of Systems Constitutional: Reports fatigue, Reports malaise and Denies night sweats Cardiovascular: Reports chest pain Respiratory: Reports pain on inspiration and Reports pain with cough Gastrointestinal: Denies abdominal pain Denies Neuro-related abnormal movements Endocrine: Reports fatigue Physical Exam Vital Signs: Vital Signs: Last Vital Signs Temp 96.9 F 05/11/21 07:48 Pulse 60 05/11/21 07:48 Resp 20 05/11/21 07:48 BP 137/60 05/11/21 07:48 Pulse Ox 98 05/11/21 07:48 Body Mass Index 24.7 Const: General: alert Neck: Neck: Yes normal visual inspection, Yes full ROM and Yes no l ymphadenopathy Chest: Chest palpation & inspection: normal inspection of the chest Resp: Auscultation: diminished lung sounds Cardio: Rate: regular rate Rhythm: regular rhythm Heart sounds: S1 normal heart sound present and S2 normal heart sound present GI: Palpation (GI): Soft to palpation and nontender Auscultation: normal bowel sounds Skin: General skin exam: rashes and/or lesions noted Procedures Date of Service Date of Service: 05/11/21 Assessment and Plan Assessment and plan (1) Rib fracture: Status: Acute (2) Cavitary lesion of lung: Status: Acute (3) Lung mass: Status: Acute Assessment and Plan: Awaiting pathology results Awaiting culture results Okay to stop TB precautions once the AFB from the CT-guided biopsy is negative Pain management Bronchoscopy if biopsy is nondiagnostic. Time Spent With Patient Time: Total time spent is greater than 50% in coordination of care (as documented) at patient's floor/unit and/or counseling patient: Time with patient: 15 - 24 minutes Progress Note: Quality Stroke Does the patient have a stroke diagnosis?: No
[2021-05-11] MEDS: polyethylene glycoL 3350 17 GM POWD.PACK PO (09:42)
[2021-05-11 10:58] LABS: Glucose, Whole Blood 280 mg/dL (60-115)
[2021-05-11] MEDS: Insulin Lispro 100 UNIT/ML 3 ML VIAL SUBCUT ×2 (12:00→21:41)
--- NOTE | 2021-05-11 14:15 | MHC.CM.PN ---
Female 85 s/p Lung biopsy yesterday 05/10. Pathology is pending. Possible Bronch tomorrow. DP home with dtr assist and transport. CM will follow.
--- NOTE | 2021-05-11 14:28 | P.PNIM_ITS ---
Subjective Subjective Date of Service: 05/11/21 Interval History: No acute events overnight. Discussed with nursing Review of Systems Denies chest pain Denies shortness of breath Denies nausea vomiting diarrhea Physical Exam Vital Signs: Vital Signs: Last Vital Signs Temp 97.9 F 05/11/21 11:08 Pulse 78 05/11/21 11:08 Resp 18 05/11/21 11:08 BP 183/78 H 05/11/21 11:08 Pulse Ox 99 05/11/21 11:08 Body Mass Index 24.7 Const: Other: No acute distress. Resting comfortably HENMT: Other: Mucous membranes moist; oropharynx clear Resp: Other: Clear to auscultation; good aeration to bases. No rales rhonchi or wheezes Cardio: Other: No S4; positive S1-S2; no S3; no murmurs rubs or gallops GI: Other: Soft nontender nondistended with normoactive bowel sounds. There are no peritoneal signs Neuro: Other: Age-appropriate nonfocal Extrem: Other: No edema bilateral Objective Data Active Medications Acetaminophen (Acetaminophen 325 Mg Tablet) 650 mg PO Q6H PRN PRN Reason: Pain, Mild (Pain Scale 1-3) Last Admin: 05/10/21 23:02 Dose: 650 mg Documented by: ASPEN Dextrose (Dextrose 50 % 25 Gm/50 Ml Vial) 25 gm IVPUSH Q15M PRN; Protocol PRN Reason: per Hypoglycemia Standing Ord. Docusate Sodium (Docusate Sodium 100 Mg Capsule) 100 mg PO BEDTIME COUNT INCLUDES THE [facility] Last Admin: 05/10/21 20:34 Dose: 100 mg Documented by: ASPEN Enoxaparin Sodium (Enoxaparin Sodium 40 Mg/0.4 Ml Syringe) 40 mg SUBCUT Q24H COUNT INCLUDES THE [facility] Last Admin: 05/11/21 09:06 Dose: 40 mg Documented by: CANDELARIA Glucose (Glucose Gel 15 Gm Gel..Gram.) 15 gm PO Q15M PRN; Protocol PRN Reason: per Hypoglycemia Standing Ord. Ampicillin Sodium/Sulbactam (Sodium 3 gm/ Sodium Chloride) 100 mls @ 200 mls/hr IV Q6H COUNT INCLUDES THE [facility] Last Admin: 05/11/21 14:26 Dose: 200 mls/hr Documented by: THERESA Insulin Human Lispro (Insulin Lispro 100 Unit/Ml 3 Ml Vial) 0 unit SUBCUT QIDACHS COUNT INCLUDES THE [facility]; Protocol Last Admin: 05/11/21 12:00 Dose: 6 unit Documented by: THERESA Lidocaine (Lidocaine 4 % Patch Adh..Patch) 1 patch TRANSDERMA DAILY COUNT INCLUDES THE [facility]; Protocol Last Admin: 05/11/21 08:59 Dose: 1 patch Documented by: CANDELARIA Melatonin (Melatonin 3 Mg Tablet) 6 mg PO BEDTIME PRN PRN Reason: Insomnia Last Admin: 05/10/21 23:02 Dose: 6 mg Documented by: ASPEN Polyethylene Glycol (Polyethylene Glycol 3350 17 Gm Powd.Pack) 17 gm PO DAILY PRN PRN Reason: constipation Last Admin: 05/11/21 09:42 Dose: 17 gm Documented by: CANDELARIA Senna (Sennosides 8.6 Mg Tablet) 17.2 mg PO BEDTIME PRN PRN Reason: Constipation Sodium Biphosphate/Sodium Phosphate (Sodium Phosphate,[place]-Dibasic 133 Ml Enema) 133 ml [place] ONCE PRN PRN Reason: constipation Last Admin: 05/09/21 18:36 Dose: 133 ml Documented by: TAYLER Sodium Chloride (0.9 % Sodium Chloride Flush 3 Ml Syringe) [facility] Last Admin: 05/11/21 08:59 Dose: 3 ml Documented by: CANDELARIA Sodium Chloride (Sodium Chloride 3 % Inhalation 15 Ml Vial.Neb) 15 ml INHALE DAILY PRN PRN Reason: sputum sample Last Admin: 05/10/21 12:03 Dose: 15 ml Documented by: PARISH Sodium Chloride (Sodium Chloride 3 % Inhalation 15 Ml Vial.Neb) 4 ml INHALE Q4H PRN PRN Reason: sputum induction Last Admin: 05/08/21 15:52 Dose: 4 ml Documented by: KYUNG Labs CBC & Chem 7: 05/11/21 06:50 05/11/21 06:50 Labs: Laboratory Results - last 24 hr 05/10/21 05/10/21 05/11/21 16:10 20:24 00:13 MCV MCH MCHC RDW Plt Count MPV Absolute Nucleated RBC Nucleated RBC % (auto) Anion Gap Estim Creat Clear Calc Estimated GFR POC Glucose 139 H 122 H Random Glucose Calcium Iron 22 L TIBC 215 L % Saturation 10 L Unsat Iron Binding 193 Vitamin B12 Folate 05/11/21 05/11/21 05/11/21 06:50 06:50 06:50 MCV 86.0 MCH 28.0 MCHC 32.6 RDW 13.8 Plt Count 485 H MPV 9.1 L Absolute Nucleated RBC 0.000 Nucleated RBC % (auto) 0.0 Anion Gap 12 Estim Creat Clear Calc 46.6 Estimated GFR > 60 POC Glucose Random Glucose 161 H Calcium 10.1 Iron TIBC % Saturation Unsat Iron Binding Vitamin B12 > 2000 H Folate 18.6 05/11/21 05/11/21 07:20 10:49 MCV MCH MCHC RDW Plt Count MPV Absolute Nucleated RBC Nucleated RBC % (auto) Anion Gap Estim Creat Clear Calc Estimated GFR POC Glucose 136 H 280 H Random Glucose Calcium Iron TIBC % Saturation Unsat Iron Binding Vitamin B12 Folate Microbiology Microbiology Results: Microbiology 05/10/21 12:26 Gram Stain - Final Sputum - Induced Sputum Culture - Preliminary Culture in progress. 05/10/21 Unknown Gram Stain - Final Lung - Abscess Routine Culture - Preliminary No growth to date. Anaerobic Culture - Preliminary No growth to date. 05/06/21 01:57 Blood Culture - Final Blood - Venous No growth after 5 days. 05/06/21 01:55 Blood Culture - Final Blood - Venous No growth after 5 days. Assessment and Plan (1) Cavitary lesion of lung: Status: Acute Assessment and Plan: 85-year-old female with a past medical history of diabetes, chronic abdominal pain, history of abdominal surgery recently came from [facility] to [facility]. presented to the hospital today with a chief complaint of abdominal pain found to have large cavitary lung lesion with invasion into ribs. 1.Left lung cavitary lesion: Appreciate pulmonary input; IR biopsy of lung mass done path pending Appreciate oncology input; treatment based on results of pathology 2.Hypokelemia Repleted; will follow up potassium daily and replete as indicated 3.Rib fracture likely pathological: Sats stable. Pain control adjusted as indicated 4.DMII Cover with sliding scale insulin; diabetic diet. Can follow-up with PCP as outpatient question oral therapies Code status - full code DVT prophylaxis:? Lovenox Quality Stroke Does the patient have a stroke diagnosis?: No VTE Prior VTE?: No VTE Risk Level:: Medical - moderate - high VTE Device Contraindication: Treatment Not Indicated VTE Drug Contraindication: N/A - Med Ordered
[2021-05-11 15:25] LABS: Alanine Aminotransferase 18 U/L (0-31); Albumin Level 3.5 g/dL (3.5-5.0); Alkaline Phosphatase 102 U/L (39-117); Anion Gap 12 (12-20); Aspartate Amino Transferase 19 U/L (5-31); Bilirubin Total 0.2 mg/dL (0.0-1.0); Blood Urea Nitrogen 9 mg/dL (9-16); Calcium 10.4 mg/dL (8.4-10.2); Carbon Dioxide 32 mmol/L (22-29); Chloride 99 mmol/L (96-108); Creatinine Clr Calc Pharmacy 46.6; Estimated Glomerular Filt Rate > 60; Glucose Fasting 114 mg/dL (60-99); Potassium 3.1 mmol/L (3.3-5.1); Sodium 140 mmol/L (135-145); Total Protein 7.2 g/dL (6.5-8.0)
[2021-05-11 16:19] LABS: Glucose, Whole Blood 107 mg/dL (60-115)
[2021-05-11 20:15] LABS: Glucose, Whole Blood 199 mg/dL (60-115)
[2021-05-11] MEDS: Docusate Sodium 100 MG CAPSULE PO (21:42)
[2021-05-12] MEDS: Ampicillin Sodium/Sulbactam Na 3 GM in 0.9 % Sodium Chloride 100 ML IV ×3 (02:13→14:44)
[2021-05-12] MEDS: 0.9 % Sodium Chloride Flush 3 ML SYRINGE IVFLUSH ×3 (02:13→14:44)
[2021-05-12 03:31] VITALS: BP 171/73; PULSE 67; RESP 18; TEMP 36.9; O2SAT 94
[2021-05-12 05:59] LABS: MANUAL DIFF FLAG NO
[2021-05-12 06:09] LABS: Basophils Percent Auto 0.3 % (0-2); Eosinophils Absolute Auto 0.1 X10*3/uL (0.0-0.4); Eosinophils Percent Auto 1.1 % (0-4); Hematocrit 27.1 % (37-47); Hemoglobin 8.9 g/dl (12.0-16.0); Imm Gran Abs Auto 0.04 X10*3/uL (0.00-0.03); Imm Gran Pct Auto 0.3 % (0.0-0.4); Lymphocytes Absolute Auto 3.2 X10*3/uL (1.2-4.9); Mean Corpuscular HGB Conc 32.8 g/dl (31.0-35.0); Mean Corpuscular Hemoglobin 28.1 pg (27.0-33.0); Mean Corpuscular Volume 85.5 fL (80-98); Mean Platelet Volume 8.9 fL (9.4-12.3); Monocytes Absolute Auto 0.9 X10*3/uL (0.1-1.2); Monocytes Percent Auto 7.8 % (2-11); Neutrophils Absolute Auto 7.5 X10*3/uL (2.0-8.3); Neutrophils Percent Auto 63.5 % (45-73); Platelet Count 479 X10*3/uL (160-400); Red Blood Count 3.17 X10*6/uL (4.20-5.50); White Blood Count 11.8 X10*3/uL (4.8-10.8)
[2021-05-12 07:24] LABS: Glucose, Whole Blood 186 mg/dL (60-115)
[2021-05-12 07:38] VITALS: BP 143/65; PULSE 81; RESP 20; TEMP 37.6; O2SAT 96
[2021-05-12] MEDS: Acetaminophen 325 MG TABLET 650 MG PO (07:39)
[2021-05-12] MEDS: Enoxaparin Sodium 40 MG/0.4 ML SYRINGE SUBCUT (07:39)
[2021-05-12] MEDS: Insulin Lispro 100 UNIT/ML 3 ML VIAL SUBCUT ×3 (07:40→16:40)
[2021-05-12] MEDS: Lidocaine 4 % Patch ADH..PATCH 1 PATCH TRANSDERMA (07:41)
[2021-05-12 11:15] VITALS: BP 140/63; PULSE 68; RESP 20; TEMP 37.1; O2SAT 99
[2021-05-12 11:20] LABS: Glucose, Whole Blood 241 mg/dL (60-115)
--- NOTE | 2021-05-12 14:07 | MHC.CM.PN ---
Female 85 DX Lung Mass. She is discharged today no services. Her daughter has been notified. She will pick the patient up at 4pm today.
--- NOTE | 2021-05-12 14:56 | P.DS_ITS ---
DS: Providers Provider Date of Service: 05/12/21 Date of admission: 05/06/21 02:35 Date of discharge: 05/12/21 Primary care physician: None Physician Consults: 05/06/21 02:34 Consult to Hematology / Oncology Routine Consulting Provider: Shade Rider Reason for consultation: lung mass Consult to Pulmonology Routine Consulting Provider: Spenser Azul Reason for consultation: lung cavitary lesion DS: Diagnosis Discharge Diagnosis (1) Cavitary lesion of lung: Status: Acute DS: Summary Hospital Course Hospital Course: 85 year-old female with a past medical history of diabetes, chronic abdominal pain, history of abdominal surgery recently came from [facility] to [place]. presented to the hospital today with a chief complaint of abdominal pain. Patient reports that she has chronic abdominal pain but for the past couple days she has been having increased abdominal pain/chest discomfort; denies any falls.? Complains of nausea and vomiting happened today. ER course: Per ER team patient had CT abdomen pelvis done which showed no evidence of intra-abdominal obstruction; on this CT chest noted to have left lung cavitary lesion concern for malignancy.? Patient was seen by pulmonology who recommended CT-guided biopsy of cavitary lesion. On 05/10/[address]-guided needle aspiration of cavitary lesion without incident. Pathology is pending at time of discharge; consult placed oncology will follow up upon receiving pathology. At this point in time patient was medically stable for discharge and will be discharged with pain meds with family Status at Discharge Cognitive/behavioral status at discharge: Stable Time Spent with Patient Time attestation: Total time spent providing and/or coordinating discharge services: Discharge coordination time: Greater than 30 minutes Quality: Stroke Does the patient have a stroke diagnosis?: No Physical Exam Vital Signs: Vital Signs: Last Vital Signs Temp 98.8 F 05/12/21 11:15 Pulse 68 05/12/21 11:15 Resp 20 05/12/21 11:15 BP 140/63 H 05/12/21 11:15 Pulse Ox 99 05/12/21 11:15 Body Mass Index 24.7 Const: Other: Awake alert no acute distress HENMT: Other: Oral membranes moist pharynx clear Resp: Other: Diminished breath sounds throughout no rales Cardio: Other: Distant heart sounds; no S4; S1-S2 positive; no S3 murmurs rubs or gallops GI: Other: Soft nontender nondistended with normoactive bowel sounds. No appreciable hepatosplenomegaly Extrem: Other: No edema bilaterally DS: Data Data Completed and Pending Pending studies at discharge: Pending at discharge 05/10/21 17:37 Cytology [PTH] Routine 05/10/21 17:38 Surgical [PTH] Routine Labs on day of discharge: Laboratory Results - last 24 hr 05/11/21 05/11/21 05/11/21 15:01 16:10 20:11 WBC RBC Hgb Hct MCV MCH MCHC RDW Plt Count MPV Immature Gran % (Auto) Neut % (Auto) Lymph % (Auto) [place] % (Auto) Eos % (Auto) Baso % (Auto) Lymph # (Auto) [place] # (Auto) Eos # (Auto) Baso # (Auto) Abs Immat Gran (auto) Absolute Neuts (auto) Absolute Nucleated RBC Nucleated RBC % (auto) Sodium 140 Potassium 3.1 L Chloride 99 Carbon Dioxide 32 H Anion Gap 12 BUN 9 Creatinine 0.76 Estim Creat Clear Calc 46.6 Estimated GFR > 60 POC Glucose 107 199 H Fasting Glucose 114 H Calcium 10.4 H Total Bilirubin 0.2 AST 19 ALT 18 Alkaline Phosphatase 102 Total Protein 7.2 Albumin 3.5 05/12/21 05/12/21 05/12/21 05:46 07:18 11:16 WBC 11.8 H RBC 3.17 L Hgb 8.9 L Hct 27.1 L MCV 85.5 MCH 28.1 MCHC 32.8 RDW 14.0 Plt Count 479 H MPV 8.9 L Immature Gran % (Auto) 0.3 Neut % (Auto) 63.5 Lymph % (Auto) 27.0 [place] % (Auto) 7.8 Eos % (Auto) 1.1 Baso % (Auto) 0.3 Lymph # (Auto) 3.2 [place] # (Auto) 0.9 Eos # (Auto) 0.1 Baso # (Auto) 0.0 Abs Immat Gran (auto) 0.04 H Absolute Neuts (auto) 7.5 Absolute Nucleated RBC 0.000 Nucleated RBC % (auto) 0.0 Sodium Potassium Chloride Carbon Dioxide Anion Gap BUN Creatinine Estim Creat Clear Calc Estimated GFR POC Glucose 186 H 241 H Fasting Glucose Calcium Total Bilirubin AST ALT Alkaline Phosphatase Total Protein Albumin Preliminary micro results at discharge 05/10/21 12:26 Sputum Culture - Preliminary Sputum - Induced Culture in progress. 05/10/21 Unknown Routine Culture - Preliminary Lung - Abscess No growth to date. Anaerobic Culture - Preliminary No growth to date. Discharge Plan Discharge Patient Disposition: Home, Self-Care Discharge Diagnosis: Cavitary lung mass Referrals: Physician,None [Primary Care Provider] - 1 Week Discharge Medications: New amoxicillin-pot clavulanate [Augmentin] 875-125 mg tablet 1 tab PO BID Qty: 14 RF: 0 Continued tramadol-acetaminophen 37.5-325 mg Tablet 1 tab PO BID PRN (Reason: Pain) RF: 0 Discharge Orders: Discharge Order (Routine); Ordered 05/12/21 Ordered By: Ghassan Chaidez Diet: advance to usual diet Activity on Discharge: As tolerated Stand Alone Forms: Patient Portal Discharge page Care Plan Goals: Follow-up with oncology Health Concerns: Pain management Plan of Treatment: Maximize care Assessment: Stable
[2021-05-12 15:09] VITALS: BP 180/80; PULSE 109; RESP 20; TEMP 36.6; O2SAT 97
[2021-05-12 16:13] LABS: Glucose, Whole Blood 198 mg/dL (60-115)
[2021-05-12] MEDS: traMADoL HCL 50 MG TABLET PO (16:41)
== END 2021-05-12 17:10 | disposition home or self-care (01) | DRG 136 ==
LOC: HO.ED 05-06 01:30 → HO.EDOVER 05-06 02:42 → HO.IMC 05-06 14:54
PROVIDERS: Hospitalist; Internal Medicine Pulmonary Disease; Nurse Practitioner Acute Care; Physician Assistant Medical; Radiology Diagnostic Radiology; Admitting Provider Hospitalist; Emergency Provider Student in an Organized Health Care Education/Training Program; Visit Provider Hospitalist
PROC: 0BBJ3ZX Excision of Left Lower Lung Lobe, Percutaneous Approach, Diagnostic (ICD-10-PCS; principal; 2021-05-10 15:30)
DX: C34.32 Malignant neoplasm of lower lobe, left bronchus or lung (principal); M84.48XA Pathological fracture, other site, initial encounter for fracture; E11.9 Type 2 diabetes mellitus without complications; E87.6 Hypokalemia; Z20.822 Contact with and (suspected) exposure to COVID-19
CPT/HCPCS: 10010; 10160; 36415; 71045; 71260; 74177; 80048; 80053; 82607; 82746; 82947; 83540; 83605; 84484; 85025; 85027; 85379; 85610; 85730; 86481; 87040; 87070; 87071; 87073; 87077; 87102; 87103; 87116; 87185; 87205; 87635; 88173; 88305; 88341; 88342; 88360; 93005; 96361; 96374; 99152; 99285; J0295; J0692; J1650; Q9967

== ENCOUNTER 2021-05-30 14:53 | Outpatient (REF) | payer MEDICAID, OTHER, SELFPAY ==
--- NOTE | ~2021-05-30 | CT_ITS ---
EXAMINATION: CT ABDOMEN AND PELVIS WITHOUT AND WITH CONTRAST CLINICAL INFORMATION: Lung cancer. Left adrenal nodule. COMPARISON: Previous CT of the abdomen and pelvis 05/05/2021 TECHNIQUE: Multidetector volumetric imaging was performed of the abdomen and pelvis before and after the IV administration of 85 mL of Omnipaque 300 intravenous contrast. Sagittal and coronal reformatted images were obtained on the technologist's workstation. This CT examination was performed using dose optimization techniques as appropriate, variously including the following: *Automated exposure control *Adjustment of mA and/or kV according to patient size (this includes techniques or standardized protocols for targeted exams where dose is matched to indication/reason for exam; i.e. extremities or head) *Use of iterative reconstruction technique DLP: 893 mGy-cm FINDINGS: LUNG BASES: There is a left lower lobe mass measuring 2.5 x 4.8 cm that is unchanged. There is a small calcified left lower lobe nodule measuring 5 mm that is unchanged. LIVER, GALLBLADDER, AND BILIARY TREE: The liver is normal in size, shape, and attenuation. There is a small calcification in the high right lobe of the liver. No focal hepatic lesion or biliary ductal dilatation is present. The gallbladder is unremarkable with no evidence of radiopaque gallstones, gallbladder wall thickening, or obvious pericholecystic inflammatory changes. PANCREAS: Unremarkable SPLEEN: There is a 0.7 cm low-attenuation lesion in the spleen. Hounsfield units on all phases measure 45 suggesting this represents a nonenhancing complex cyst. This is similar to previous exam. ADRENAL GLANDS: There is a 1 cm left adrenal nodule. Hounsfield units pre-IV contrast measure 16. Hounsfield units post-IV contrast measure 93. Delayed Hounsfield units 15 minutes after IV contrast measure 37. Percentage and relative left adrenal nodule washout are 60 and 73% suggestive of an adenoma. The right adrenal gland is normal-appearing. KIDNEYS AND URETERS: There are bilateral renal cysts. Largest cyst measures 3 cm in the right kidney. No imaging follow-up needed. The kidneys are otherwise unremarkable.. BLADDER: Unremarkable GASTROINTESTINAL TRACT: The small and large bowel are unremarkable. The appendix is unremarkable. ABDOMINAL WALL: No significant hernia is appreciated. LYMPH NODES: Normal VASCULAR: Unremarkable PELVIC VISCERA: Unremarkable OSSEOUS STRUCTURES: There are degenerative changes of the spine and hip joints. CT/CT abdomen pelvis wo/w con IMPRESSION: 1 cm left adrenal nodule with benign washout characteristics suggestive of an adenoma. Multiple bilateral renal cysts. Nonenhancing splenic lesion probably representing a complex cyst.
[2021-05-30] MEDS: iohexoL 350 MG/ML 100 ML INFUS..BTL IV (16:32)
== END 2021-05-30 14:54 | disposition home or self-care (01) ==
LOC: HO.CT 14:53
PROVIDERS: PCP Hospitalist; Visit Provider Internal Medicine Medical Oncology
DX: C34.90 Malignant neoplasm of unspecified part of unspecified bronchus or lung (principal)
CPT/HCPCS: 74178; Q9967